=== PATIENT | male | born 1960 | race Caucasian/White ===

== ENCOUNTER 2022-11-08 09:27 | Outpatient (REF) | payer SELFPAY ==
[2022-11-08 10:45] LABS: Creatinine, mg/dL 67.26; Protein mg/dL 211 mg/dL
[2022-11-08 10:48] LABS: Creatinine, 24Hr Urine 0.4 G/Day (1.0-2.0); Protein 24 Hr Urine 1266 mg/Day (<150); Total Volume 24 Hour Urine 600 mL
== END 2022-11-08 09:28 | disposition home or self-care (01) ==
LOC: HO.LNP 09:27
PROVIDERS: Visit Provider Internal Medicine
DX: R53.83 Other fatigue (principal); R80.9 Proteinuria, unspecified
CPT/HCPCS: 84156

== ENCOUNTER 2023-03-20 14:36 | Inpatient (IN) | payer MEDICAID, SELFPAY ==
--- NOTE | ~2023-03-20 | XR_ITS ---
EXAMINATION: XR CHEST CLINICAL INFORMATION: Fluid overload COMPARISON: None available. TECHNIQUE: 2 views of the chest were obtained. FINDINGS: Asymmetric elevation of right diaphragm above the left. Streaky patchy airspace opacity in the right upper lobe with elevation of right minor fissure suggesting some volume loss. Left lung normally aerated. There is a small right sided pleural effusion blunting the posterior costophrenic angle. Central pulmonary vessels are mildly prominent. This is accentuated by the low inspiratory effort. No overt pulmonary edema. Cardiac mediastinal contours are normal. Heart size is normal XR/XR chest 2V IMPRESSION: 1. Streaky patchy airspace opacity in the right upper lobe with elevation of right minor fissure suggesting some volume loss. Small right pleural effusion. 2. Mild central pulmonary vascular congestion accentuated by low inspiratory effort.
--- NOTE | ~2023-03-20 | US_ITS ---
EXAMINATION: US RETROPERITONEAL LIMITED (RENAL ONLY) CLINICAL INFORMATION: Acute kidney injury, retention. COMPARISON: None available. TECHNIQUE: Real-time imaging of the kidneys. FINDINGS: RIGHT KIDNEY: 11 x 4.8 x 6 cm (SAG x AP x TRV). The kidney is normal in size, contour, and echogenicity. Renal cortical thickness is normal. No renal calculi or hydronephrosis. There is a 1.6 x 1.7 x 1.6 cm cyst in the upper pole with a thin internal septation, Bosniak 2 for which no imaging follow-up is recommended. LEFT KIDNEY: 10.6 x 6 x 4 cm (SAG x AP x TRV). The kidney is normal in size, contour, and echogenicity. Renal cortical thickness is normal. No calculi or focal parenchymal lesions. No hydronephrosis. OTHER FINDINGS: Right greater than left pleural effusions. Partial visualization of a decompressed gallbladder filled with stones, evaluation of wall thickening is limited due to underdistention. US/US renal BI IMPRESSION: 1. No hydronephrosis or nephrolithiasis. 2. Right greater than left pleural effusions. 3. A 1.7 cm cyst in the upper pole of the right kidney with a thin internal septation, Bosniak 2 for which no imaging follow-up is recommended. 4. Cholelithiasis within a decompressed gallbladder limiting assessment of wall thickening. If clinically deemed appropriate a repeat ultrasound after appropriate fasting could be obtained for reevaluation of the gallbladder.
[2023-03-20 14:39] VITALS: BP 130/76; PULSE 87; RESP 18; TEMP 36.8; O2SAT 96; BMI 23.9
--- NOTE | 2023-03-20 14:43 | ED_ITS ---
HPI - General Adult General Chief complaint: General Medical <Masood Lantigua - Last Filed: 03/20/23 14:44> Stated complaint: Fluid Retention Stage 3 Kidney Disease <Masood Lantigua - Last Filed: 03/20/23 14:44> Time Seen by Provider: 03/20/23 19:43 <Masood Lantigua - Last Filed: 03/20/23 14:44> Source: patient and family <Francisco Brewer MD - Last Filed: 03/21/23 02:03> Mode of arrival: wheelchair <Francisco Brewer MD - Last Filed: 03/21/23 02:03> Limitations: no limitations <Francisco Brewer MD - Last Filed: 03/21/23 02:03> History of Present Illness HPI narrative: Patient's diabetes hypertension CKD pulmonary hypertension, heart failure with reduced EF ejection fraction 15% PAP of 40 to50 recent streptococcal bacteremia with acute hypoxic respiratory failure admitted at [facility] on 02/24 discharged on 03/06 comes back here as having increased swelling in legs since discharge denies any shortness of breath feels weak is making less amount of urine , during lasat admission patient creatinine was 3.4 improved to 3 at the time of discharge <Francisco Brewer MD - Last Filed: 03/21/23 02:03> Related Data Home medications: Home Medications Medication Instructions Recorded Confirmed albuterol sulfate 90 mcg/actuation 1 - 2 puff inhalation Q4-6H PRN 03/20/23 03/20/23 aerosol inhaler (Ventolin HFA) Shortness Of Breath Or Wheezing aspirin 81 mg tablet,delayed 81 mg PO DAILY 03/20/23 03/20/23 release atorvastatin 40 mg tablet 40 mg PO BEDTIME 03/20/23 03/20/23 brimonidine 0.025 % eye drops 1 drp ophthalmic-Right Q8H PRN IOP 03/20/23 03/20/23 hydralazine 25 mg tablet 25 mg PO TID 03/20/23 03/20/23 isosorbide mononitrate 30 mg 60 mg PO DAILY 03/20/23 03/20/23 tablet,extended release 24 hr latanoprost 0.005 % eye drops 1 drp ophthalmic (eye) BEDTIME 03/20/23 03/20/23 metoprolol succinate 25 mg 50 mg PO DAILY 03/20/23 03/20/23 tablet,extended release 24 hr tamsulosin 0.4 mg capsule 0.4 mg PO BEDTIME 03/20/23 03/20/23 timolol 0.25 % eye drops 1 drp ophthalmic (eye) BID 03/20/23 03/20/23 <Masood Lantigua - Last Filed: 03/20/23 14:44> Allergies/adverse reactions: Allergies Allergy/AdvReac Type Severity Reaction Status Date / Time No Known Allergies Allergy Verified 03/20/23 14:41 <Masood Lantigua - Last Filed: 03/20/23 14:44> Review of Systems Review of Systems: Yes all other systems are reviewed and are negative <Abraham Brewer MD - Last Filed: 03/21/23 02:03> [facility] Past Medical History Medical History: Medical History (Updated 03/21/23 @ 02:02 by Francisco Brewer MD) BPH (benign prostatic hyperplasia) Cardiomyopathy CKD (chronic kidney disease), stage III Diabetes mellitus Hypertension <Masood Lantigua - Last Filed: 03/20/23 14:44> Physical Exam ED Vital Signs: Vital Signs - 24 hr 03/20/23 14:39 03/20/23 19:33 Temperature 98.2 F 98.1 F Pulse Rate 87 89 Respiratory Rate 18 17 Blood Pressure 130/76 171/99 H Pulse Oximetry 96 95 Oxygen Delivery Method Room Air Room Air BMI result Body Mass Index 23.9 <Masood Lantigua - Last Filed: 03/20/23 14:44> Vital Signs - 24 hr 03/20/23 14:39 03/20/23 19:33 Temperature 98.2 F 98.1 F Pulse Rate 87 89 Respiratory Rate 18 17 Blood Pressure 130/76 171/99 H Pulse Oximetry 96 95 Oxygen Delivery Method Room Air Room Air BMI result Body Mass Index 23.9 <Francisco Brewer MD - Last Filed: 03/21/23 02:03> Appearance: Alert. Oriented X3. No acute distress. Eyes: PERRLA, legally blind ENT: Pharynx normal. Oral Mucosa moist pale++ Neck: Normal inspection. Neck supple. CVS: Normal heart rate and rhythm. Pulses normal. Respiratory: No respiratory distress. Equal air entry bilateral, no wheezing/rales/rhonchi Abdomen: Soft and nontender. Bowel sounds are present, no mass palpable, no CVA tenderness Skin: Skin warm and dry. Normal skin color. Normal skin turgor. Extremities: 2+ lower extremity edema. No calf tenderness Neuro: Oriented X 3. No motor deficit. No sensory deficit.No cerebellar signs , cranial nerves II-XII intact <Francisco Brewer MD - Last Filed: 03/21/23 02:03> Course Course Course Narrative: 62-year-old male presents for evaluation of ?fluid retention. ? Patient reports recent admission for similar at [facility]. He states this episode has been gone for about a weel and a half. Denies any fevers, chills, cough shortness of breath <Masood Lantigua - Last Filed: 03/20/23 14:44> Medications Administered Generic Name Dose Route Start Last Admin Trade Name Freq PRN Reason Stop Dose Admin Heparin Sodium (Porcine) 5,000 unit 03/20/23 22:00 03/20/23 22:21 Heparin Sodium,Porcine 5,000 Unit/Ml Vial SUBCUT 5,000 unit Q8H MARC Administration Discontinued Medications Generic Name Dose Route Start Last Admin Trade Name Freq PRN Reason Stop Dose Admin Furosemide 40 mg 03/20/23 20:02 03/20/23 20:25 Furosemide 40 Mg/4 Ml Vial IVPUSH 03/20/23 20:03 40 mg ONCE ONE Administration Protocol <Masood Lantigua - Last Filed: 03/20/23 14:44> Medications Administered Generic Name Dose Route Start Last Admin Trade Name Freq PRN Reason Stop Dose Admin Heparin Sodium (Porcine) 5,000 unit 03/20/23 22:00 03/20/23 22:21 Heparin Sodium,Porcine 5,000 Unit/Ml Vial SUBCUT 5,000 unit Q8H MARC Administration Discontinued Medications Generic Name Dose Route Start Last Admin Trade Name Freq PRN Reason Stop Dose Admin Furosemide 40 mg 03/20/23 20:02 03/20/23 20:25 Furosemide 40 Mg/4 Ml Vial IVPUSH 03/20/23 20:03 40 mg ONCE ONE Administration Protocol <Francisco Brewer MD - Last Filed: 03/21/23 02:03> Medical Decision Making Medical Decision Making [facility] Narrative: Patient with GERSON on CKD with fluid overload not on diuretics admit patient for IV diuresis and further evaluation by department coordinator patient bladder scan showed 900 cc of urine patient refused to have Holliday catheter says that he will urinate himself hospitalist aware <Francisco Brewer MD - Last Filed: 03/21/23 02:03> Lab Data [facility] Lab Attestation statement: I reviewed the patient's lab results. <Francisco Brewer MD - Last Filed: 03/21/23 02:03> Result Diagrams: 03/20/23 16:50 03/20/23 16:50 <Masood Lantigua - Last Filed: 03/20/23 14:44> Labs: Lab Results 03/20/23 03/20/23 03/20/23 Range/Units 16:50 16:50 17:29 WBC 8.6 (4.8-10.8) X10*3/uL RBC 2.84 L (4.60-5.80) X10*6/uL Hgb 8.5 L (14.0-18.0) g/dl Hct 26.3 L (42.0-52.0) % MCV 92.6 (80.0-98.0) fL MCH 29.9 (27.0-33.0) pg MCHC 32.3 (31.0-36.0) g/dl RDW 15.5 (11.0-16.0) % Plt Count 286 (160-400) X10*3/uL MPV 9.8 (9.4-12.4) fL Immature Gran % (Auto) 0.3 (0.0-0.4) % Neut % (Auto) 78.8 H (45-73) % Lymph % (Auto) 6.5 L (20-40) % [place] % (Auto) 12.4 H (2-11) % Eos % (Auto) 1.4 (0-4) % Baso % (Auto) 0.6 (0-2) % Lymph # (Auto) 0.6 L (1.2-4.9) X10*3/uL [place] # (Auto) 1.1 (0.1-1.2) X10*3/uL Eos # (Auto) 0.1 (0.0-0.4) X10*3/uL Baso # (Auto) 0.1 (0.0-0.2) X10*3/uL Abs Immat Gran (auto) 0.03 (0.00-0.03) X10*3/uL Absolute Neuts (auto) 6.8 (2.0-8.3) x10*3/uL Absolute Nucleated RBC 0.000 (0.0-0.012) X10*3/uL Nucleated RBC % (auto) 0.0 (0.0-0.2) /100WBC Sodium 139 (135-145) mmol/L Potassium 5.4 H (3.3-5.1) mmol/L Chloride 109 H (96-108) mmol/L Carbon Dioxide 23 (22-29) mmol/L Anion Gap 12 (12-20) BUN 57 H (9-16) mg/dL Creatinine 3.92 H (0.5-1.4) mg/dL Estim Creat Clear Calc 18.2 Estimated GFR 16 POC Glucose (60-115) mg/dL Random Glucose 198 H (60-115) mg/dL Calcium 8.0 L (8.4-10.2) mg/dL Total Bilirubin 0.5 (0.0-1.0) mg/dL AST 21 (5-37) U/L ALT 29 (0-40) U/L Alkaline Phosphatase 196 H (39-117) U/L B-Natriuretic Peptide 2973 H (<100) pg/mL Total Protein 5.8 L (6.5-8.0) g/dL Albumin 3.0 L (3.5-5.0) g/dL 03/20/23 Range/Units 19:47 WBC (4.8-10.8) X10*3/uL RBC (4.60-5.80) X10*6/uL Hgb (14.0-18.0) g/dl Hct (42.0-52.0) % MCV (80.0-98.0) fL MCH (27.0-33.0) pg MCHC (31.0-36.0) g/dl RDW (11.0-16.0) % Plt Count (160-400) X10*3/uL MPV (9.4-12.4) fL Immature Gran % (Auto) (0.0-0.4) % Neut % (Auto) (45-73) % Lymph % (Auto) (20-40) % [place] % (Auto) (2-11) % Eos % (Auto) (0-4) % Baso % (Auto) (0-2) % Lymph # (Auto) (1.2-4.9) X10*3/uL [place] # (Auto) (0.1-1.2) X10*3/uL Eos # (Auto) (0.0-0.4) X10*3/uL Baso # (Auto) (0.0-0.2) X10*3/uL Abs Immat Gran (auto) (0.00-0.03) X10*3/uL Absolute Neuts (auto) (2.0-8.3) x10*3/uL Absolute Nucleated RBC (0.0-0.012) X10*3/uL Nucleated RBC % (auto) (0.0-0.2) /100WBC Sodium (135-145) mmol/L Potassium (3.3-5.1) mmol/L Chloride (96-108) mmol/L Carbon Dioxide (22-29) mmol/L Anion Gap (12-20) BUN (9-16) mg/dL Creatinine (0.5-1.4) mg/dL Estim Creat Clear Calc Estimated GFR POC Glucose 218 H (60-115) mg/dL Random Glucose (60-115) mg/dL Calcium (8.4-10.2) mg/dL Total Bilirubin (0.0-1.0) mg/dL AST (5-37) U/L ALT (0-40) U/L Alkaline Phosphatase (39-117) U/L B-Natriuretic Peptide (<100) pg/mL Total Protein (6.5-8.0) g/dL Albumin (3.5-5.0) g/dL <Masood Lantigua - Last Filed: 03/20/23 14:44> Lab Results 03/20/23 03/20/23 03/20/23 Range/Units 16:50 16:50 17:29 WBC 8.6 (4.8-10.8) X10*3/uL RBC 2.84 L (4.60-5.80) X10*6/uL Hgb 8.5 L (14.0-18.0) g/dl Hct 26.3 L (42.0-52.0) % MCV 92.6 (80.0-98.0) fL MCH 29.9 (27.0-33.0) pg MCHC 32.3 (31.0-36.0) g/dl RDW 15.5 (11.0-16.0) % Plt Count 286 (160-400) X10*3/uL MPV 9.8 (9.4-12.4) fL Immature Gran % (Auto) 0.3 (0.0-0.4) % Neut % (Auto) 78.8 H (45-73) % Lymph % (Auto) 6.5 L (20-40) % [place] % (Auto) 12.4 H (2-11) % Eos % (Auto) 1.4 (0-4) % Baso % (Auto) 0.6 (0-2) % Lymph # (Auto) 0.6 L (1.2-4.9) X10*3/uL [place] # (Auto) 1.1 (0.1-1.2) X10*3/uL Eos # (Auto) 0.1 (0.0-0.4) X10*3/uL Baso # (Auto) 0.1 (0.0-0.2) X10*3/uL Abs Immat Gran (auto) 0.03 (0.00-0.03) X10*3/uL Absolute Neuts (auto) 6.8 (2.0-8.3) x10*3/uL Absolute Nucleated RBC 0.000 (0.0-0.012) X10*3/uL Nucleated RBC % (auto) 0.0 (0.0-0.2) /100WBC Sodium 139 (135-145) mmol/L Potassium 5.4 H (3.3-5.1) mmol/L Chloride 109 H (96-108) mmol/L Carbon Dioxide 23 (22-29) mmol/L Anion Gap 12 (12-20) BUN 57 H (9-16) mg/dL Creatinine 3.92 H (0.5-1.4) mg/dL Estim Creat Clear Calc 18.2 Estimated GFR 16 POC Glucose (60-115) mg/dL Random Glucose 198 H (60-115) mg/dL Calcium 8.0 L (8.4-10.2) mg/dL Total Bilirubin 0.5 (0.0-1.0) mg/dL AST 21 (5-37) U/L ALT 29 (0-40) U/L Alkaline Phosphatase 196 H (39-117) U/L B-Natriuretic Peptide 2973 H (<100) pg/mL Total Protein 5.8 L (6.5-8.0) g/dL Albumin 3.0 L (3.5-5.0) g/dL 03/20/23 Range/Units 19:47 WBC (4.8-10.8) X10*3/uL RBC (4.60-5.80) X10*6/uL Hgb (14.0-18.0) g/dl Hct (42.0-52.0) % MCV (80.0-98.0) fL MCH (27.0-33.0) pg MCHC (31.0-36.0) g/dl RDW (11.0-16.0) % Plt Count (160-400) X10*3/uL MPV (9.4-12.4) fL Immature Gran % (Auto) (0.0-0.4) % Neut % (Auto) (45-73) % Lymph % (Auto) (20-40) % [place] % (Auto) (2-11) % Eos % (Auto) (0-4) % Baso % (Auto) (0-2) % Lymph # (Auto) (1.2-4.9) X10*3/uL [place] # (Auto) (0.1-1.2) X10*3/uL Eos # (Auto) (0.0-0.4) X10*3/uL Baso # (Auto) (0.0-0.2) X10*3/uL Abs Immat Gran (auto) (0.00-0.03) X10*3/uL Absolute Neuts (auto) (2.0-8.3) x10*3/uL Absolute Nucleated RBC (0.0-0.012) X10*3/uL Nucleated RBC % (auto) (0.0-0.2) /100WBC Sodium (135-145) mmol/L Potassium (3.3-5.1) mmol/L Chloride (96-108) mmol/L Carbon Dioxide (22-29) mmol/L Anion Gap (12-20) BUN (9-16) mg/dL Creatinine (0.5-1.4) mg/dL Estim Creat Clear Calc Estimated GFR POC Glucose 218 H (60-115) mg/dL Random Glucose (60-115) mg/dL Calcium (8.4-10.2) mg/dL Total Bilirubin (0.0-1.0) mg/dL AST (5-37) U/L ALT (0-40) U/L Alkaline Phosphatase (39-117) U/L B-Natriuretic Peptide (<100) pg/mL Total Protein (6.5-8.0) g/dL Albumin (3.5-5.0) g/dL <Francisco Brewer MD - Last Filed: 03/21/23 02:03> Discharge Plan Discharge Clinical Impression: Acute kidney injury superimposed on chronic kidney disease, Fluid overload <Masood Lantigua - Last Filed: 03/20/23 14:44> Patient Disposition: Admitted As Inpatient <Masood Lantigua - Last Filed: 03/20/23 14:44> Interventions: Admission Worksheet (ED) Last Done: 03/20/23 23:03 <Masood Lantigua - Last Filed: 03/20/23 14:44> Discharge Date/Time: 03/20/23 23:03 <Masood Lantigua - Last Filed: 03/20/23 14:44>
[2023-03-20 16:54] LABS: MANUAL DIFF FLAG NO
[2023-03-20 16:56] LABS: Basophils Absolute Auto 0.1 X10*3/uL (0.0-0.2); Basophils Percent Auto 0.6 % (0-2); Eosinophils Absolute Auto 0.1 X10*3/uL (0.0-0.4); Eosinophils Percent Auto 1.4 % (0-4); Hematocrit 26.3 % (42.0-52.0); Hemoglobin 8.5 g/dl (14.0-18.0); Imm Gran Abs Auto 0.03 X10*3/uL (0.00-0.03); Imm Gran Pct Auto 0.3 % (0.0-0.4); Lymphocytes Absolute Auto 0.6 X10*3/uL (1.2-4.9); Lymphocytes Percent Auto 6.5 % (20-40); Mean Corpuscular HGB Conc 32.3 g/dl (31.0-36.0); Mean Corpuscular Hemoglobin 29.9 pg (27.0-33.0); Mean Corpuscular Volume 92.6 fL (80.0-98.0); Mean Platelet Volume 9.8 fL (9.4-12.4); Monocytes Absolute Auto 1.1 X10*3/uL (0.1-1.2); Monocytes Percent Auto 12.4 % (2-11); Neutrophils Absolute Auto 6.8 x10*3/uL (2.0-8.3); Neutrophils Percent Auto 78.8 % (45-73); Platelet Count 286 X10*3/uL (160-400); Red Blood Count 2.84 X10*6/uL (4.60-5.80); Red Cell Distribution Width 15.5 % (11.0-16.0); White Blood Count 8.6 X10*3/uL (4.8-10.8)
[2023-03-20 17:10] LABS: Alanine Aminotransferase 29 U/L (0-40); Alkaline Phosphatase 196 U/L (39-117); Anion Gap 12 (12-20); Aspartate Amino Transferase 21 U/L (5-37); Bilirubin Total 0.5 mg/dL (0.0-1.0); Blood Urea Nitrogen 57 mg/dL (9-16); Carbon Dioxide 23 mmol/L (22-29); Chloride 109 mmol/L (96-108); Creatinine Clr Calc Pharmacy 18.2; Estimated Glomerular Filt Rate 16; Glucose Random 198 mg/dL (60-115); Potassium 5.4 mmol/L (3.3-5.1); Sodium 139 mmol/L (135-145); Total Protein 5.8 g/dL (6.5-8.0)
[2023-03-20 18:43] LABS: B Type Natriuretic Peptide 2973 pg/mL (<100)
[2023-03-20 19:33] VITALS: BP 171/99; PULSE 89; RESP 17; TEMP 36.7; O2SAT 95
[2023-03-20 19:51] LABS: Glucose, Whole Blood 218 mg/dL (60-115)
--- NOTE | 2023-03-20 19:56 | MHC.EDTECH ---
Paitent Vitals are stable Blood sugar was 218 Reported to RN
[2023-03-20] MEDS: Furosemide 40 MG/4 ML VIAL IVPUSH (20:25)
--- NOTE | 2023-03-20 21:49 | PM.IMHP ---
History of Present Illness Date of Service: 03/20/23 Chief Complaint: lowere extremity edema 62M PMH cardiomyopathy (EF15%, grade III diastolic dysfunction) [place] [facility] [place] hospitalization for strep pneumonia with bacteremia, DM, CKD III with proteinuria, HTN, BPH with urinary retention, presented with lower extremity edema. patient has noticed worsening lower extremity edema since discharge after [place] [facility] [place] for hyopglycemia. denies sob or orthopnea. in ED noted to have 1L on bladder scan, refused catheter, labs significant for creatinine 3.92 (was 2.5 at discharge from [facility] [place] given lasix 40mg Review of Systems Review of Systems: Yes all other systems are reviewed and are negative [facility] Medical History (Updated 03/20/23 @ 21:59 by Ian Garcia MD) BPH (benign prostatic hyperplasia) Cardiomyopathy CKD (chronic kidney disease), stage III Diabetes mellitus Hypertension Social History Advance Directives: No Advance Directives Information Provided: No Meds Allergies Allergy/AdvReac Type Severity Reaction Status Date / Time No Known Allergies Allergy Verified 03/20/23 14:41 Active Medications: Current Medications Furosemide (Furosemide 40 Mg/4 Ml Vial) 40 mg IVPUSH BID@0900,1800 [facility]; Protocol Glucose (Glucose Gel 15 Gm Gel..Gram.) 15 gm PO Q15M PRN; Protocol PRN Reason: per Hypoglycemia Standing Ord. Heparin Sodium (Porcine) (Heparin Sodium,Porcine 5,000 Unit/Ml Vial) 5,000 unit SUBCUT Q8H [facility] Dextrose (D10) 250 mls @ 750 mls/hr IV Q15M PRN; Protocol PRN Reason: per Hypoglycemia Standing Ord. Insulin Human Lispro (Insulin Lispro 100 Unit/Ml 3 Ml Vial) 0 unit SUBCUT QIDACHS [facility]; Protocol Pharmacy Consult (Consult Rx Perform Med Rec) 1 each MISCELLANE ONCE PRN PRN Reason: Consult order Sodium Chloride (0.9 % Sodium Chloride Flush 3 Ml Syringe) 3 ml IVFLUSH QSHIFT [facility] Physical Exam Vital Signs and Narrative: Vital Signs: Last Vital Signs Temp 98.1 F 03/20/23 19:33 Pulse 89 03/20/23 19:33 Resp 17 03/20/23 19:33 BP 171/99 H 03/20/23 19:33 Pulse Ox 95 03/20/23 19:33 O2 Del Method Room Air 03/20/23 19:33 BMI result Body Mass Index 23.9 General: AO X 3, no acute distress Resp: CTA bilateral, no accessory muscles used CVS: S1,S2,RRR, 3+ edema GI: soft, non tender, non distended Neuro: motor grossly intact, alert Psych: appropriate affect, appropriate insight Results Labs 03/20/23 16:50 03/20/23 16:50 Labs: Laboratory Results - last 24 hr 03/20/23 03/20/23 03/20/23 16:50 16:50 17:29 MCV 92.6 MCH 29.9 MCHC 32.3 RDW 15.5 Plt Count 286 MPV 9.8 Immature Gran % (Auto) 0.3 Neut % (Auto) 78.8 H Lymph % (Auto) 6.5 L [place] % (Auto) 12.4 H Eos % (Auto) 1.4 Baso % (Auto) 0.6 Lymph # (Auto) 0.6 L [place] # (Auto) 1.1 Eos # (Auto) 0.1 Baso # (Auto) 0.1 Abs Immat Gran (auto) 0.03 Absolute Neuts (auto) 6.8 Absolute Nucleated RBC 0.000 Nucleated RBC % (auto) 0.0 Anion Gap 12 Estim Creat Clear Calc 18.2 Estimated GFR 16 POC Glucose Random Glucose 198 H Calcium 8.0 L Total Bilirubin 0.5 AST 21 ALT 29 Alkaline Phosphatase 196 H B-Natriuretic Peptide 2973 H Total Protein 5.8 L Albumin 3.0 L 03/20/23 19:47 MCV MCH MCHC RDW Plt Count MPV Immature Gran % (Auto) Neut % (Auto) Lymph % (Auto) [place] % (Auto) Eos % (Auto) Baso % (Auto) Lymph # (Auto) [place] # (Auto) Eos # (Auto) Baso # (Auto) Abs Immat Gran (auto) Absolute Neuts (auto) Absolute Nucleated RBC Nucleated RBC % (auto) Anion Gap Estim Creat Clear Calc Estimated GFR POC Glucose 218 H Random Glucose Calcium Total Bilirubin AST ALT Alkaline Phosphatase B-Natriuretic Peptide Total Protein Albumin Imaging Radiologist's Impressions: Impressions Chest X-Ray 03/20/23 15:05 IMPRESSION: 1. Streaky patchy airspace opacity in the right upper lobe with elevation of right minor fissure suggesting some volume loss. Small right pleural effusion. 2. Mild central pulmonary vascular congestion accentuated by low inspiratory effort. Assessment and Plan (1) Cardiomyopathy: Status: Acute Plan 62M PMH cardiomyopathy (EF15%, grade III diastolic dysfunction) [place] [facility] [place] during hospitalization for strep pneumonia with bacteremia, DM, CKD III with proteinuria, HTN, BPH with urinary retention, presented with lower extremity edema. anasarca due to acute on chronic chf with reduced EF and 3rd spacing from proteinuria IV lasix outpatient follow up with cardiology continue toprol GERSON on CKD III with proteinuria ? cardiorenal +/- obstructive refusing urine cath monitor bladder scan, check renal US nephro eval monitor bmp closely with diuresis flomax HTN hydralazine, toprol, imdur DM insulin sliding scale, monitor pocs dvt prophylaxis - hep sq full code patient with significant edema requiring iv diuresis likely to require close monitoring and and several day sof daily labs due to concomitant GERSON on CKDIII, therefore, expected to require atelast 2 midnights inpatient Time Spent With Patient Time: Total time managing care of this patient today ____ minutes. Quality Stroke Does the patient have a stroke diagnosis?: No VTE Prior VTE?: No VTE Risk Level:: Medical - moderate - high VTE Device Contraindication: Treatment Not Indicated VTE Drug Contraindication: N/A - Med Ordered
[2023-03-20] MEDS: Heparin Sodium,Porcine 5,000 UNIT/ML VIAL 5000 UNIT SUBCUT (22:21)
[2023-03-20 22:23] VITALS: BP 151/93; PULSE 87; RESP 17; TEMP 36.8; O2SAT 98
--- NOTE | 2023-03-20 22:35 | PC.NURSE ---
pt medicated according to jan. pt calm and cooperative. awaiting to be brought up to 482
[2023-03-21] VITALS (7 sets, daily range): BP systolic 110–134; BP diastolic 64–81; PULSE 86–91; RESP 16–20; TEMP 36.3–37; O2SAT 94–96
[2023-03-21] MEDS: 0.9 % Sodium Chloride Flush 3 ML SYRINGE IVFLUSH ×4 (03:37→20:56)
[2023-03-21] MEDS: Heparin Sodium,Porcine 5,000 UNIT/ML VIAL 5000 UNIT SUBCUT ×3 (06:03→20:57)
[2023-03-21 06:33] LABS: Hematocrit 24.2 % (42.0-52.0); Hemoglobin 7.8 g/dl (14.0-18.0); Mean Corpuscular HGB Conc 32.2 g/dl (31.0-36.0); Mean Corpuscular Hemoglobin 29.9 pg (27.0-33.0); Mean Corpuscular Volume 92.7 fL (80.0-98.0); Mean Platelet Volume 10.2 fL (9.4-12.4); Platelet Count 278 X10*3/uL (160-400); Red Blood Count 2.61 X10*6/uL (4.60-5.80); Red Cell Distribution Width 15.5 % (11.0-16.0); White Blood Count 7.6 X10*3/uL (4.8-10.8)
[2023-03-21 07:00] LABS: Anion Gap 12 (12-20); Blood Urea Nitrogen 59 mg/dL (9-16); Calcium 7.9 mg/dL (8.4-10.2); Carbon Dioxide 23 mmol/L (22-29); Chloride 110 mmol/L (96-108); Creatinine Clr Calc Pharmacy 19.1; Estimated Glomerular Filt Rate 17; Glucose Fasting 158 mg/dL (60-99); Magnesium 1.5 mg/dL (1.6-2.6); Potassium 5.1 mmol/L (3.3-5.1); Sodium 140 mmol/L (135-145)
[2023-03-21 07:33] LABS: Glucose, Whole Blood 148 mg/dL (60-115)
[2023-03-21] MEDS: Aspirin Enteric Coated 81 MG TABLET.DR PO (08:06)
[2023-03-21] MEDS: Magnesium Sulfate/H2O 2 GM/50 ML PIGGYBACK IV (08:06)
[2023-03-21] MEDS: Isosorbide Mononitrate 60 MG TAB.ER.24H PO (08:07)
[2023-03-21] MEDS: Metoprolol Succinate ER 50 MG TAB.ER.24H PO (08:07)
[2023-03-21] MEDS: Furosemide 40 MG/4 ML VIAL IVPUSH ×2 (08:07→17:30)
[2023-03-21] MEDS: hydrALAZINE HCl 25 MG TABLET PO ×3 (08:07→20:55)
--- NOTE | 2023-03-21 10:51 | MHC.CM.PN ---
Lives w/sister; previously on service w/[facility] for nursing, OT and PT, he is happy w/this in-home care. He has a walker and [facility] is in process of getting him a shower chair. He was just D/C'd from [facility] one week ago following an extended hospital stay for PNA per his statement. At time of D/C his sister will be transporting him home. D/C plan is home w/resumption of in-home services provided by [facility] for nursing, OT and PT. CM to follow.
--- NOTE | 2023-03-21 10:58 | P.PNIM_ITS ---
Subjective Subjective Date of Service: 03/21/23 Interval History: seen and examined this morning follow up for lower extremity edema no sob, chest pain refusing murillo cath or straight cath. no abdominal pain Review of Systems Review of Systems: Yes all other systems are reviewed and are negative Constitutional Constitutional: Denies chills and Denies fever(s) Cardiovascular Cardiovascular: Denies chest pain, Denies palpitations and Denies dyspnea Respiratory Respiratory: Denies cough and Denies dyspnea Gastrointestinal Gastrointestinal: Denies abdominal pain, Denies nausea and Denies vomiting Endocrine Endocrine: Denies palpitations Physical Exam Vital Signs: Vital Signs: Last Vital Signs Temp 97.8 F 03/21/23 10:53 Pulse 86 03/21/23 10:53 Resp 16 03/21/23 10:53 BP 110/64 03/21/23 10:53 Pulse Ox 94 03/21/23 10:53 O2 Del Method Room Air 03/21/23 10:53 BMI result Body Mass Index 23.9 Const: General: alert and awake Nutritional Appearance: average body habitus Orientation/consciousness: patient oriented x3 Resp: Effort & Inspection: normal respiratory effort and able to speak in complete sentences Auscultation: clear to auscultation bilaterally Cardio: Rate: regular rate GI: Inspection: No distended Palpation (GI): Soft to palpation and nontender Neuro: General: patient oriented x3 and CN's II-XI intact bilaterally Extrem: Other: 3+ edema b/l LE Objective Data Active Medications Aspirin (Aspirin Enteric Coated 81 Mg Tablet.) 81 mg PO DAILY [facility] Last Admin: 03/21/23 08:06 Dose: 81 mg Documented By: ROBE Atorvastatin Calcium (Atorvastatin Calcium 40 Mg Tablet) 40 mg PO BEDTIME [facility] Furosemide (Furosemide 40 Mg/4 Ml Vial) 40 mg IVPUSH BID@0900,1800 [facility]; Protocol Last Admin: 03/21/23 08:07 Dose: 40 mg Documented By: ROBE Glucose (Glucose Gel 15 Gm Gel..Gram.) 15 gm PO Q15M PRN; Protocol PRN Reason: per Hypoglycemia Standing Ord. Heparin Sodium (Porcine) (Heparin Sodium,Porcine 5,000 Unit/Ml Vial) 5,000 unit SUBCUT Q8H [facility] Last Admin: 03/21/23 06:03 Dose: 5,000 unit Documented By: HO.ANTOIC Hydralazine HCl (Hydralazine Hcl 25 Mg Tablet) 25 mg PO TID [facility]; Protocol Last Admin: 03/21/23 08:07 Dose: 25 mg Documented By: ROBE Dextrose (D10) 250 mls @ 750 mls/hr IV Q15M PRN; Protocol PRN Reason: per Hypoglycemia Standing Ord. Insulin Human Lispro (Insulin Lispro 100 Unit/Ml 3 Ml Vial) 0 unit SUBCUT QIDACHS [facility]; Protocol Last Admin: 03/21/23 07:38 Dose: Not Given Documented By: ROBE Non-Admin Reason: No Insulin Coverage Isosorbide Mononitrate (Isosorbide Mononitrate 60 Mg Tab.Er.24h) 60 mg PO DAILY [facility]; Protocol Last Admin: 03/21/23 08:07 Dose: 60 mg Documented By: ROBE Latanoprost (Latanoprost 0.005 % Ophth Jaymie 2.5 Ml Drops) 1 drop EYE-BOTH BEDTIME [facility] Metoprolol Succinate (Metoprolol Succinate Er 50 Mg Tab.Er.24h) 50 mg PO DAILY [facility]; Protocol Last Admin: 03/21/23 08:07 Dose: 50 mg Documented By: ROBE Non-Formulary Medication ( Brimonidine 0.025% 1 Drop) 1 drop EYE-RIGHT Q8H PRN PRN Reason: IOP Non-Formulary Medication (Timolol 0.25% 1 Drop) 1 drop EYE-BOTH BID [facility] Pharmacy Consult (Consult Rx Perform Med Rec) 1 each MISCELLANE ONCE PRN PRN Reason: Consult order Sodium Chloride (0.9 % Sodium Chloride Flush 3 Ml Syringe) 3 ml IVFLUSH QSHIFT [facility] Last Admin: 03/21/23 08:06 Dose: 3 ml Documented By: ROBE Tamsulosin HCl (Tamsulosin Hcl 0.4 Mg Capsule) 0.4 mg PO BEDTIME [facility] Labs 03/21/23 06:02 03/21/23 06:02 Labs: Laboratory Results - last 24 hr 03/20/23 03/20/23 03/20/23 16:50 16:50 17:29 MCV 92.6 MCH 29.9 MCHC 32.3 RDW 15.5 Plt Count 286 MPV 9.8 Immature Gran % (Auto) 0.3 Neut % (Auto) 78.8 H Lymph % (Auto) 6.5 L Glascock % (Auto) 12.4 H Eos % (Auto) 1.4 Baso % (Auto) 0.6 Lymph # (Auto) 0.6 L Glascock # (Auto) 1.1 Eos # (Auto) 0.1 Baso # (Auto) 0.1 Abs Immat Gran (auto) 0.03 Absolute Neuts (auto) 6.8 Absolute Nucleated RBC 0.000 Nucleated RBC % (auto) 0.0 Anion Gap 12 Estim Creat Clear Calc 18.2 Estimated GFR 16 POC Glucose Random Glucose 198 H Fasting Glucose Calcium 8.0 L Magnesium Total Bilirubin 0.5 AST 21 ALT 29 Alkaline Phosphatase 196 H B-Natriuretic Peptide 2973 H Total Protein 5.8 L Albumin 3.0 L 03/20/23 03/21/23 03/21/23 19:47 06:02 06:02 MCV 92.7 MCH 29.9 MCHC 32.2 RDW 15.5 Plt Count 278 MPV 10.2 Immature Gran % (Auto) Neut % (Auto) Lymph % (Auto) Glascock % (Auto) Eos % (Auto) Baso % (Auto) Lymph # (Auto) Glascock # (Auto) Eos # (Auto) Baso # (Auto) Abs Immat Gran (auto) Absolute Neuts (auto) Absolute Nucleated RBC 0.000 Nucleated RBC % (auto) 0.0 Anion Gap 12 Estim Creat Clear Calc 19.1 Estimated GFR 17 POC Glucose 218 H Random Glucose Fasting Glucose 158 H Calcium 7.9 L Magnesium 1.5 L Total Bilirubin AST ALT Alkaline Phosphatase B-Natriuretic Peptide Total Protein Albumin 03/21/23 07:13 MCV MCH MCHC RDW Plt Count MPV Immature Gran % (Auto) Neut % (Auto) Lymph % (Auto) Glascock % (Auto) Eos % (Auto) Baso % (Auto) Lymph # (Auto) Glascock # (Auto) Eos # (Auto) Baso # (Auto) Abs Immat Gran (auto) Absolute Neuts (auto) Absolute Nucleated RBC Nucleated RBC % (auto) Anion Gap Estim Creat Clear Calc Estimated GFR POC Glucose 148 H Random Glucose Fasting Glucose Calcium Magnesium Total Bilirubin AST ALT Alkaline Phosphatase B-Natriuretic Peptide Total Protein Albumin Assessment and Plan (1) Acute kidney injury superimposed on chronic kidney disease: Status: Acute (2) Cardiomyopathy: Status: Acute (3) Fluid overload: Status: Acute Plan 62M PMH cardiomyopathy (EF15%, grade III diastolic dysfunction) recently diagnosed at [facility] january 2023 during hospitalization for strep pneumonia with bacteremia, DM, CKD III with proteinuria, HTN, BPH with urinary retention, presented with lower extremity edema. anasarca due to acute on chronic chf with reduced EF and 3rd spacing from proteinuria continue IV lasix continue toprol nephrology eval GERSON on CKD III with proteinuria SCr 2.5 on last d/c from [facility] earlier this month ? cardiorenal. no obstruction on renal US nephro eval pending monitor bmp closely with diuresis hypo magnesemia Replace and follow urinary retention refusing murillo/straight cath; monitor bladder scan, retaining 1L this am, refused straight cath, eventually urinated 600+ flomax Cardiomyopathy EF 15%, grade III diastolic dysfunction declined cardiac catheterization at [facility] lasix as above outpatient follow up with cardiology Chronic normocytic anemia likely anemia of chronic dz in setting of CKD no evidence of blood loss consider blood transfusion, will discuss with patient Follow H&H HTN hydralazine, toprol, imdur DM insulin sliding scale, monitor pocs dvt prophylaxis - hep sq full code attending - dr. rojas requires oingoing inpatient stay patient for significant edema requiring iv di uresis likely to require close monitoring and and several day, daily labs due to concomitant GERSON on CKDIII Time Spent With Patient Time: Total time managing care of this patient today ____ minutes. Quality Stroke Does the patient have a stroke diagnosis?: No VTE Prior VTE?: No VTE Risk Level:: Medical - moderate - high VTE Device Contraindication: Treatment Not Indicated VTE Drug Contraindication: N/A - Med Ordered
[2023-03-21 11:09] LABS: Glucose, Whole Blood 207 mg/dL (60-115)
--- NOTE | 2023-03-21 11:48 | PC.NURSE ---
caption writer was asked by provider to talk w pt regarding possible blood transfusion in light of low H&H. Discussed pros and cons, how the actual transfusion works, function of kidney in blood cell production among other topics. pt stated he would like to wait and see what tomorrow (03/22) bloodwork shows. If it is low or lower, it seems he will be amenable to the transfusion.
[2023-03-21] MEDS: Insulin Lispro 100 UNIT/ML 3 ML VIAL SUBCUT ×2 (12:01→20:56)
--- NOTE | 2023-03-21 14:30 | PM.CNNEP ---
History of Present Illness Reason for Consult Consult date: 03/21/23 Chief Complaint Chief complaint: Chf,Gerson History of Present Illness Narrative: 62M with cardiomyopathy (EF15%, grade III diastolic dysfunction) recently diagnosed at [facility] jan[place] 2023 during hospitalization for strep pneumonia with bacteremia, DM, CKD III with proteinuria, HTN, BPH with urinary retention, presented with lower extremity edema. He noticed worsening lower extremity edema since discharge after second hospitalization to [facility] in february 2023 for hyopglycemia. denies sob or orthopnea. in ED noted to have 1L on bladder scan, refused catheter, labs significant for creatinine 3.92 (was 2.5 at discharge from [facility]). Nephrology was consulted to assist in her clinical care during her current hospital stay Review of Systems Review of Systems Yes all other systems are reviewed and are negative [facility] Past Medical History Medical History (Updated 03/21/23 @ 02:02 by Francisco Brewer MD) BPH (benign prostatic hyperplasia) Cardiomyopathy CKD (chronic kidney disease), stage III Diabetes mellitus Hypertension Social History Social History Household Members: Family Housing: House Do you presently have visiting nurse or other home services: Yes Patient Tobacco Use Status: Never used Tobacco service: No Current occupational status: unemployed Meds Allergies Allergy/AdvReac Type Severity Reaction Status Date / Time No Known Allergies Allergy Verified 03/20/23 14:41 Active Medications: Current Medications Aspirin (Aspirin Enteric Coated 81 Mg Tablet.) 81 mg PO DAILY [facility] Last Admin: 03/21/23 08:06 Dose: 81 mg Atorvastatin Calcium (Atorvastatin Calcium 40 Mg Tablet) 40 mg PO BEDTIME [facility] Furosemide (Furosemide 40 Mg/4 Ml Vial) 40 mg IVPUSH BID@0900,1800 [facility]; Protocol Last Admin: 03/21/23 08:07 Dose: 40 mg Glucose (Glucose Gel 15 Gm Gel..Gram.) 15 gm PO Q15M PRN; Protocol PRN Reason: per Hypoglycemia Standing Ord. Heparin Sodium (Porcine) (Heparin Sodium,Porcine 5,000 Unit/Ml Vial) 5,000 unit SUBCUT Q8H [facility] Last Admin: 03/21/23 14:23 Dose: 5,000 unit Hydralazine HCl (Hydralazine Hcl 25 Mg Tablet) 25 mg PO TID [facility]; Protocol Last Admin: 03/21/23 14:23 Dose: 25 mg Dextrose (D10) 250 mls @ 750 mls/hr IV Q15M PRN; Protocol PRN Reason: per Hypoglycemia Standing Ord. Insulin Human Lispro (Insulin Lispro 100 Unit/Ml 3 Ml Vial) 0 unit SUBCUT QIDACHS [facility]; Protocol Last Admin: 03/21/23 12:01 Dose: 4 unit Isosorbide Mononitrate (Isosorbide Mononitrate 60 Mg Tab.Er.24h) 60 mg PO DAILY [facility]; Protocol Last Admin: 03/21/23 08:07 Dose: 60 mg Latanoprost (Latanoprost 0.005 % Ophth Jaymie 2.5 Ml Drops) 1 drop EYE-BOTH BEDTIME [facility] Metoprolol Succinate (Metoprolol Succinate Er 50 Mg Tab.Er.24h) 50 mg PO DAILY [facility]; Protocol Last Admin: 03/21/23 08:07 Dose: 50 mg Non-Formulary Medication ( Brimonidine 0.025% 1 Drop) 1 drop EYE-RIGHT Q8H PRN PRN Reason: IOP Non-Formulary Medication (Timolol 0.25% 1 Drop) 1 drop EYE-BOTH BID [facility] Pharmacy Consult (Consult Rx Perform Med Rec) 1 each MISCELLANE ONCE PRN PRN Reason: Consult order Sodium Chloride (0.9 % Sodium Chloride Flush 3 Ml Syringe) 3 ml IVFLUSH QSHIFT [facility] Last Admin: 03/21/23 08:06 Dose: 3 ml Tamsulosin HCl (Tamsulosin Hcl 0.4 Mg Capsule) 0.4 mg PO BEDTIME [facility] Home Medications Medication Instructions Recorded Confirmed Last Taken Type albuterol sulfate 90 mcg/actuation 1 - 2 puff inhalation Q4-6H PRN 03/20/23 03/20/23 Unknown History aerosol inhaler (Ventolin HFA) Shortness Of Breath Or Wheezing aspirin 81 mg tablet,delayed 81 mg PO DAILY 03/20/23 03/20/23 Unknown History release atorvastatin 40 mg tablet 40 mg PO BEDTIME 03/20/23 03/20/23 Unknown History brimonidine 0.025 % eye drops 1 drp ophthalmic-Right Q8H PRN IOP 03/20/23 03/20/23 Unknown History hydralazine 25 mg tablet 25 mg PO TID 03/20/23 03/20/23 Unknown History isosorbide mononitrate 30 mg 60 mg PO DAILY 03/20/23 03/20/23 Unknown History tablet,extended release 24 hr latanoprost 0.005 % eye drops 1 drp ophthalmic (eye) BEDTIME 03/20/23 03/20/23 Unknown History metoprolol succinate 25 mg 50 mg PO DAILY 03/20/23 03/20/23 Unknown History tablet,extended release 24 hr tamsulosin 0.4 mg capsule 0.4 mg PO BEDTIME 03/20/23 03/20/23 Unknown History timolol 0.25 % eye drops 1 drp ophthalmic (eye) BID 03/20/23 03/20/23 Unknown History Physical Exam Vital Signs: Last Vital Signs Temp 97.8 F 03/21/23 10:53 Pulse 86 03/21/23 10:53 Resp 16 03/21/23 10:53 BP 110/64 03/21/23 10:53 Pulse Ox 94 03/21/23 10:53 O2 Del Method Room Air 03/21/23 10:53 BMI result Body Mass Index 23.9 Const General: no acute distress Orientation/consciousness: patient oriented x3 Eyes EOM: EOMs intact bilaterally Resp Auscultation: diminished lung sounds Cardio Rate: regular rate GI Palpation (GI): Soft to palpation Neuro General: patient oriented x3 Results Lab Results 03/21/23 06:02 03/21/23 06:02 Lab results: Chemistry 03/20/23 03/21/23 16:50 06:02 Sodium 139 140 Potassium 5.4 H 5.1 Carbon Dioxide 23 23 BUN 57 H 59 H Creatinine 3.92 H 3.74 H Calcium 8.0 L 7.9 L Hematology 03/20/23 03/21/23 16:50 06:02 WBC 8.6 7.6 Hgb 8.5 L 7.8 L Plt Count 286 278 Assessment and Plan (1) Acute kidney injury superimposed on chronic kidney disease: Status: Acute Plan Has 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 Currently on lasix IV bid No ACEI/ARB/Entresto for now; Likely have to switch to lasix drip tomorrow Needs to switch Metoprolol to Carvedilol; Labs AM Time Spent With Patient Time: Total time managing care of this patient today ____ minutes. Procedures Date of Service Date of Service: 03/21/23
[2023-03-21 16:09] LABS: Glucose, Whole Blood 134 mg/dL (60-115)
[2023-03-21 20:32] LABS: Glucose, Whole Blood 195 mg/dL (60-115)
[2023-03-21] MEDS: Tamsulosin HCL 0.4 MG CAPSULE PO (20:55)
[2023-03-21] MEDS: Atorvastatin Calcium 40 MG TABLET PO (20:55)
[2023-03-21] MEDS: Latanoprost 0.005 % Ophth Sol 2.5 ML DROPS 1 DROP EYE-BOTH (21:05)
[2023-03-22] VITALS (7 sets, daily range): BP systolic 114–147; BP diastolic 63–83; PULSE 83–89; RESP 16–18; TEMP 36.1–37.4; O2SAT 93–98
[2023-03-22] MEDS: Heparin Sodium,Porcine 5,000 UNIT/ML VIAL 5000 UNIT SUBCUT ×3 (05:55→21:20)
[2023-03-22 06:25] LABS: Hematocrit 23.2 % (42.0-52.0); Hemoglobin 7.3 g/dl (14.0-18.0); Mean Corpuscular HGB Conc 31.5 g/dl (31.0-36.0); Mean Corpuscular Hemoglobin 29.1 pg (27.0-33.0); Mean Corpuscular Volume 92.4 fL (80.0-98.0); Mean Platelet Volume 10.2 fL (9.4-12.4); Platelet Count 289 X10*3/uL (160-400); Red Blood Count 2.51 X10*6/uL (4.60-5.80); Red Cell Distribution Width 15.4 % (11.0-16.0); White Blood Count 6.4 X10*3/uL (4.8-10.8)
[2023-03-22 06:48] LABS: Anion Gap 13 (12-20); Blood Urea Nitrogen 59 mg/dL (9-16); Calcium 7.9 mg/dL (8.4-10.2); Carbon Dioxide 24 mmol/L (22-29); Chloride 109 mmol/L (96-108); Creatinine Clr Calc Pharmacy 18.3; Estimated Glomerular Filt Rate 16; Glucose Random 128 mg/dL (60-115); Potassium 4.8 mmol/L (3.3-5.1); Sodium 141 mmol/L (135-145)
[2023-03-22 07:13] LABS: Glucose, Whole Blood 136 mg/dL (60-115)
[2023-03-22] MEDS: hydrALAZINE HCl 25 MG TABLET PO ×3 (08:06→20:45)
[2023-03-22] MEDS: Aspirin Enteric Coated 81 MG TABLET.DR PO (08:06)
[2023-03-22] MEDS: carvediloL 6.25 MG TABLET PO ×2 (08:06→20:45)
[2023-03-22] MEDS: Isosorbide Mononitrate 60 MG TAB.ER.24H PO (08:06)
[2023-03-22] MEDS: 0.9 % Sodium Chloride Flush 3 ML SYRINGE IVFLUSH ×2 (08:06→15:42)
[2023-03-22 08:14] LABS: Magnesium 1.7 mg/dL (1.6-2.6)
[2023-03-22] MEDS: Furosemide 40 MG/4 ML VIAL IVPUSH ×2 (08:56→17:02)
--- NOTE | 2023-03-22 11:00 | HO.PM.IMPN ---
Subjective Subjective Date of Service: 03/22/23 Interval History: seen and examined this morning follow up for leg edema, renal failure continues to have urinary retention, intermittently urinating, but not fully emptying bladder. continues to decline murillo/straight cath no sob Review of Systems Review of Systems: Yes all other systems are reviewed and are negative Constitutional Constitutional: Denies chills and Denies fever(s) ENT Ears, Nose, Mouth, and Throat: Denies dizziness Cardiovascular Cardiovascular: Denies chest pain, Denies palpitations and Denies dyspnea Respiratory Respiratory: Denies cough and Denies dyspnea Gastrointestinal Gastrointestinal: Denies abdominal pain, Denies nausea and Denies vomiting Neurologic Neurologic: Denies dizziness Endocrine Endocrine: Denies palpitations Physical Exam Vital Signs: Vital Signs: Last Vital Signs Temp 98.8 F 03/22/23 07:11 Pulse 89 03/22/23 07:11 Resp 16 03/22/23 07:11 BP 123/71 03/22/23 07:11 Pulse Ox 93 03/22/23 07:11 O2 Del Method Room Air 03/22/23 07:11 BMI result Body Mass Index 23.9 Const: General: alert and awake Nutritional Appearance: average body habitus Orientation/consciousness: patient oriented x3 Resp: Effort & Inspection: normal respiratory effort and able to speak in complete sentences Auscultation: clear to auscultation bilaterally Cardio: Rate: regular rate GI: Inspection: No distended Palpation (GI): Soft to palpation and nontender Neuro: General: patient oriented x3 and CN's II-XI intact bilaterally Extrem: Other: 2-3+ edema b/l LE Objective Data Active Medications Aspirin (Aspirin Enteric Coated 81 Mg Tablet.) 81 mg PO DAILY [facility] Last Admin: 03/22/23 08:06 Dose: 81 mg Documented By: ANDIE Atorvastatin Calcium (Atorvastatin Calcium 40 Mg Tablet) 40 mg PO BEDTIME [facility] Last Admin: 03/21/23 20:55 Dose: 40 mg Documented By: YOU Carvedilol (Carvedilol 6.25 Mg Tablet) 6.25 mg PO BID [facility]; Protocol Last Admin: 03/22/23 08:06 Dose: 6.25 mg Documented By: ANDIE Furosemide (Furosemide 40 Mg/4 Ml Vial) 40 mg IVPUSH BID@0900,1800 [facility]; Protocol Last Admin: 03/22/23 08:56 Dose: 40 mg Documented By: ANDIE Glucose (Glucose Gel 15 Gm Gel..Gram.) 15 gm PO Q15M PRN; Protocol PRN Reason: per Hypoglycemia Standing Ord. Heparin Sodium (Porcine) (Heparin Sodium,Porcine 5,000 Unit/Ml Vial) 5,000 unit SUBCUT Q8H [facility] Last Admin: 03/22/23 05:55 Dose: 5,000 unit Documented By: YOU Hydralazine HCl (Hydralazine Hcl 25 Mg Tablet) 25 mg PO TID [facility]; Protocol Last Admin: 03/22/23 08:06 Dose: 25 mg Documented By: ANDIE Dextrose (D10) 250 mls @ 750 mls/hr IV Q15M PRN; Protocol PRN Reason: per Hypoglycemia Standing Ord. Insulin Human Lispro (Insulin Lispro 100 Unit/Ml 3 Ml Vial) 0 unit SUBCUT QIDACHS [facility]; Protocol Last Admin: 03/22/23 07:28 Dose: Not Given Documented By: ANDIE Non-Admin Reason: No Insulin Coverage Isosorbide Mononitrate (Isosorbide Mononitrate 60 Mg Tab.Er.24h) 60 mg PO DAILY [facility]; Protocol Last Admin: 03/22/23 08:06 Dose: 60 mg Documented By: ANDIE Latanoprost (Latanoprost 0.005 % Ophth Jaymie 2.5 Ml Drops) 1 drop EYE-BOTH BEDTIME [facility] Last Admin: 03/21/23 21:05 Dose: 1 drop Documented By: YOU Non-Formulary Medication ( Brimonidine 0.025% 1 Drop) 1 drop EYE-RIGHT Q8H PRN PRN Reason: IOP Non-Formulary Medication (Timolol 0.25% 1 Drop) 1 drop EYE-BOTH BID [facility] Pharmacy Consult (Consult Rx Perform Med Rec) 1 each MISCELLANE ONCE PRN PRN Reason: Consult order Sodium Chloride (0.9 % Sodium Chloride Flush 3 Ml Syringe) 3 ml IVFLUSH QSHIFT [facility] Last Admin: 03/22/23 08:06 Dose: 3 ml Documented By: ANDIE Tamsulosin HCl (Tamsulosin Hcl 0.4 Mg Capsule) 0.4 mg PO BEDTIME [facility] Last Admin: 03/21/23 20:55 Dose: 0.4 mg Documented By: YOU Labs 03/22/23 05:49 03/22/23 05:49 Labs: Laboratory Results - last 24 hr 03/21/23 03/21/23 03/21/23 10:52 15:47 20:09 MCV MCH MCHC RDW Plt Count MPV Absolute Nucleated RBC Nucleated RBC % (auto) Anion Gap Estim Creat Clear Calc Estimated GFR POC Glucose 207 H 134 H 195 H Random Glucose Calcium Magnesium Blood Type Antibody Screen Crossmatch 03/22/23 03/22/23 03/22/23 05:49 05:49 07:05 MCV 92.4 MCH 29.1 MCHC 31.5 RDW 15.4 Plt Count 289 MPV 10.2 Absolute Nucleated RBC 0.000 Nucleated RBC % (auto) 0.0 Anion Gap 13 Estim Creat Clear Calc 18.3 Estimated GFR 16 POC Glucose 136 H Random Glucose 128 H Calcium 7.9 L Magnesium 1.7 Blood Type Antibody Screen Crossmatch 03/22/23 09:05 MCV MCH MCHC RDW Plt Count MPV Absolute Nucleated RBC Nucleated RBC % (auto) Anion Gap Estim Creat Clear Calc Estimated GFR POC Glucose Random Glucose Calcium Magnesium Blood Type A Negative Antibody Screen NEGATIVE Crossmatch See Detail Assessment and Plan (1) Acute kidney injury superimposed on chronic kidney disease: Status: Acute (2) BPH (benign prostatic hyperplasia): Status: Acute (3) Fluid overload: Status: Acute Plan 62M PMH cardiomyopathy (EF15%, grade III diastolic dysfunction) recently diagnosed at [facility] january 2023 during hospitalization for strep pneumonia with bacteremia, DM, CKD III with proteinuria, HTN, BPH with urinary retention, presented with lower extremity edema. anasarca due to acute on chronic chf with reduced EF and 3rd spacing from proteinuria continue IV lasix difficult to obtain accurate Is&Os due to urinary retention, documented negative 1.2L nephrology eval GERSON on CKD4 SCr 2.5 on last d/c from [facility] earlier this month. SCr 3.91 today ? cardiorenal. no obstruction on renal US but urinary retention contributing factor nephro following monitor bmp closely with diuresis hypo magnesemia Replace and follow urinary retention continues to decline murillo/straight cath flomax Cardiomyopathy EF 15%, grade III diastolic dysfunction declined cardiac catheterization at [facility] lasix as above toprol xl changed to coreg per neprho rec outpatient follow up with cardiology Chronic normocytic anemia likely anemia of chronic dz in setting of CKD no evidence of blood loss decline transfusion yesterday, but amenable today, will transfuse 1u RBC Follow H&H HTN hydralazine, imdur, coreg DM insulin sliding scale, monitor pocs dvt prophylaxis - hep sq full code attending - dr. matthews requires oingoing inpatient stay patient for significant edema requiring iv diuresis likely to require close monitoring and and several day, daily labs due to concomitant GERSON on CKDIII Time Spent With Patient Time: Total time managing care of this patient today ____ minutes. Quality Stroke Does the patient have a stroke diagnosis?: No VTE Prior VTE?: No VTE Risk Level:: Medical - moderate - high VTE Device Contraindication: Treatment Not Indicated VTE Drug Contraindication: N/A - Med Ordered
[2023-03-22 11:04] LABS: Glucose, Whole Blood 236 mg/dL (60-115)
[2023-03-22] MEDS: Acetaminophen 325 MG TABLET 650 MG PO (11:04)
[2023-03-22] MEDS: diphenhydrAMINE HCl 12.5 MG/5 ML LIQUID PO (11:05)
--- NOTE | 2023-03-22 11:31 | PC.NURSE ---
Pt given Iv lasix 40mg at 0900. 1100 bladder scanned for 850. Pt refuses st cath. Janna Issa made aware.
[2023-03-22] MEDS: Insulin Lispro 100 UNIT/ML 3 ML VIAL SUBCUT ×2 (12:12→17:02)
--- NOTE | 2023-03-22 15:45 | PM.PNNEP ---
Subjective Subjective Date of Service: 03/22/23 Interval history: continues to have urinary retention, intermittently urinating, but not fully emptying bladder. continues to decline murillo/straight cath ; All recent data reviewed Physical Exam Vital Signs: Vital Signs: Last Vital Signs Temp 98.7 F 03/22/23 15:23 Pulse 86 03/22/23 15:23 Resp 18 03/22/23 15:23 BP 121/67 03/22/23 15:23 Pulse Ox 98 03/22/23 15:23 O2 Del Method Room Air 03/22/23 15:23 BMI result Body Mass Index 23.9 Const: General: no acute distress Orientation/consciousness: patient oriented x3 Eyes: EOM: EOMs intact bilaterally Resp: Auscultation: diminished lung sounds Cardio: Rate: regular rate GI: Palpation (GI): Soft to palpation Neuro: General: patient oriented x3 Extrem: General: Yes edema Objective Data Labs 03/22/23 05:49 03/22/23 05:49 Labs: Laboratory Results - last 24 hr 03/21/23 03/21/23 03/22/23 15:47 20:09 05:49 WBC 6.4 RBC 2.51 L Hgb 7.3 L Hct 23.2 L MCV 92.4 MCH 29.1 MCHC 31.5 RDW 15.4 Plt Count 289 MPV 10.2 Absolute Nucleated RBC 0.000 Nucleated RBC % (auto) 0.0 Sodium Potassium Chloride Carbon Dioxide Anion Gap BUN Creatinine Estim Creat Clear Calc Estimated GFR POC Glucose 134 H 195 H Random Glucose Calcium Magnesium Blood Type Antibody Screen Crossmatch 03/22/23 03/22/23 03/22/23 05:49 07:05 09:05 WBC RBC Hgb Hct MCV MCH MCHC RDW Plt Count MPV Absolute Nucleated RBC Nucleated RBC % (auto) Sodium 141 Potassium 4.8 Chloride 109 H Carbon Dioxide 24 Anion Gap 13 BUN 59 H Creatinine 3.91 H Estim Creat Clear Calc 18.3 Estimated GFR 16 POC Glucose 136 H Random Glucose 128 H Calcium 7.9 L Magnesium 1.7 Blood Type A Negative Antibody Screen NEGATIVE Crossmatch See Detail 03/22/23 10:54 WBC RBC Hgb Hct MCV MCH MCHC RDW Plt Count MPV Absolute Nucleated RBC Nucleated RBC % (auto) Sodium Potassium Chloride Carbon Dioxide Anion Gap BUN Creatinine Estim Creat Clear Calc Estimated GFR POC Glucose 236 H Random Glucose Calcium Magnesium Blood Type Antibody Screen Crossmatch Procedures Date of Service Date of Service: 03/22/23 Assessment & Plan Assessment and plan (1) Acute kidney injury superimposed on chronic kidney disease: Status: Acute Assessment and Plan: Has 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 Currently on lasix IV bid No ACEI/ARB/Entresto for now; Likely have to switch to lasix drip tomorrow Switched to Carvedilol; Labs AM Progress Note: Quality Stroke Does the patient have a stroke diagnosis?: No
[2023-03-22 15:51] LABS: Glucose, Whole Blood 158 mg/dL (60-115)
[2023-03-22] MEDS: Latanoprost 0.005 % Ophth Sol 2.5 ML DROPS 1 DROP EYE-BOTH (20:45)
[2023-03-22] MEDS: Atorvastatin Calcium 40 MG TABLET PO (20:46)
[2023-03-22] MEDS: Tamsulosin HCL 0.4 MG CAPSULE PO (20:46)
[2023-03-22 20:53] LABS: Glucose, Whole Blood 136 mg/dL (60-115)
[2023-03-23] VITALS (7 sets, daily range): BP systolic 116–140; BP diastolic 63–78; PULSE 68–95; RESP 14–20; TEMP 36.1–37; O2SAT 94–98
[2023-03-23] MEDS: 0.9 % Sodium Chloride Flush 3 ML SYRINGE IVFLUSH ×4 (00:08→20:08)
[2023-03-23] MEDS: Heparin Sodium,Porcine 5,000 UNIT/ML VIAL 5000 UNIT SUBCUT ×3 (06:04→21:06)
[2023-03-23 07:57] LABS: Glucose, Whole Blood 159 mg/dL (60-115)
[2023-03-23] MEDS: Insulin Lispro 100 UNIT/ML 3 ML VIAL SUBCUT ×4 (08:02→21:06)
[2023-03-23] MEDS: carvediloL 6.25 MG TABLET PO ×2 (08:03→20:08)
[2023-03-23] MEDS: Aspirin Enteric Coated 81 MG TABLET.DR PO (08:03)
[2023-03-23] MEDS: Isosorbide Mononitrate 60 MG TAB.ER.24H PO (08:03)
[2023-03-23] MEDS: hydrALAZINE HCl 25 MG TABLET PO ×3 (08:03→20:07)
[2023-03-23] MEDS: Furosemide 40 MG/4 ML VIAL IVPUSH ×2 (08:03→17:00)
--- NOTE | 2023-03-23 11:08 | P.PNIM_ITS ---
Subjective Subjective Date of Service: 03/23/23 Interval History: seen and examined this morning follow up for leg edema, renal failure continues to have urinary retention, intermittently urinating, but not fully emptying bladder. continues to decline murillo/straight cath no sob Review of Systems Review of Systems: Yes all other systems are reviewed and are negative Constitutional Constitutional: Denies chills and Denies fever(s) ENT Ears, Nose, Mouth, and Throat: Denies dizziness Cardiovascular Cardiovascular: Denies chest pain, Denies palpitations and Denies dyspnea Respiratory Respiratory: Denies cough and Denies dyspnea Gastrointestinal Gastrointestinal: Denies abdominal pain, Denies nausea and Denies vomiting Neurologic Neurologic: Denies dizziness Endocrine Endocrine: Denies palpitations Physical Exam Vital Signs: Vital Signs: Last Vital Signs Temp 97.1 F 03/23/23 07:29 Pulse 90 03/23/23 07:29 Resp 20 03/23/23 07:29 BP 128/76 03/23/23 07:29 Pulse Ox 96 03/23/23 07:29 O2 Del Method Room Air 03/23/23 07:29 BMI result Body Mass Index 23.9 Appearing in no acute distress lung sounds are clear to auscultation heart regular rate rhythm, clear S1, S2 positive bowel sounds, abdomen is soft, nontender neuro patient is alert x3, no focal deficits Objective Data Active Medications Aspirin (Aspirin Enteric Coated 81 Mg Tablet.) 81 mg PO DAILY [facility] Last Admin: 03/23/23 08:03 Dose: 81 mg Documented By: TAINA Atorvastatin Calcium (Atorvastatin Calcium 40 Mg Tablet) 40 mg PO BEDTIME [facility] Last Admin: 03/22/23 20:46 Dose: 40 mg Documented By: AUREA Carvedilol (Carvedilol 6.25 Mg Tablet) 6.25 mg PO BID [facility]; Protocol Last Admin: 03/23/23 08:03 Dose: 6.25 mg Documented By: TAINA Furosemide (Furosemide 40 Mg/4 Ml Vial) 40 mg IVPUSH BID@0900,1800 [facility]; Protocol Last Admin: 03/23/23 08:03 Dose: 40 mg Documented By: TAINA Glucose (Glucose Gel 15 Gm Gel..Gram.) 15 gm PO Q15M PRN; Protocol PRN Reason: per Hypoglycemia Standing Ord. Heparin Sodium (Porcine) (Heparin Sodium,Porcine 5,000 Unit/Ml Vial) 5,000 unit SUBCUT Q8H [facility] Last Admin: 03/23/23 06:04 Dose: 5,000 unit Documented By: CHUCKY Hydralazine HCl (Hydralazine Hcl 25 Mg Tablet) 25 mg PO TID [facility]; Protocol Last Admin: 03/23/23 08:03 Dose: 25 mg Documented By: TAINA Dextrose (D10) 250 mls @ 750 mls/hr IV Q15M PRN; Protocol PRN Reason: per Hypoglycemia Standing Ord. Insulin Human Lispro (Insulin Lispro 100 Unit/Ml 3 Ml Vial) 0 unit SUBCUT QIDACHS [facility]; Protocol Last Admin: 03/23/23 08:02 Dose: 2 unit Documented By: TAINA Isosorbide Mononitrate (Isosorbide Mononitrate 60 Mg Tab.Er.24h) 60 mg PO DAILY [facility]; Protocol Last Admin: 03/23/23 08:03 Dose: 60 mg Documented By: TAINA Latanoprost (Latanoprost 0.005 % Ophth Jaymie 2.5 Ml Drops) 1 drop EYE-BOTH BEDTIME [facility] Last Admin: 03/22/23 20:45 Dose: 1 drop Documented By: AUREA Non-Formulary Medication ( Brimonidine 0.025% 1 Drop) 1 drop EYE-RIGHT Q8H PRN PRN Reason: IOP Non-Formulary Medication (Timolol 0.25% 1 Drop) 1 drop EYE-BOTH BID [facility] Pharmacy Consult (Consult Rx Perform Med Rec) 1 each MISCELLANE ONCE PRN PRN Reason: Consult order Sodium Chloride (0.9 % Sodium Chloride Flush 3 Ml Syringe) 3 ml IVFLUSH QSHIFT [facility] Last Admin: 03/23/23 08:09 Dose: 3 ml Documented By: TAINA Tamsulosin HCl (Tamsulosin Hcl 0.4 Mg Capsule) 0.4 mg PO BEDTIME [facility] Last Admin: 03/22/23 20:46 Dose: 0.4 mg Documented By: AUREA Labs 03/22/23 05:49 03/22/23 05:49 Labs: Laboratory Results - last 24 hr 03/22/23 03/22/23 03/22/23 09:05 15:20 20:48 POC Glucose 158 H 136 H Blood Type A Negative Antibody Screen NEGATIVE Crossmatch See Detail 03/23/23 07:32 POC Glucose 159 H Blood Type Antibody Screen Crossmatch Assessment and Plan (1) Acute kidney injury superimposed on chronic kidney disease: Status: Acute (2) BPH (benign prostatic hyperplasia): Status: Acute (3) Fluid overload: Status: Acute Plan 62M PMH cardiomyopathy (EF15%, grade III diastolic dysfunction) [place] [facility] during hospitalization for strep pneumonia with bact eremia, DM, CKD III with proteinuria, HTN, BPH with urinary retention, presented with lower extremity edema. Anasarca due to acute on chronic chf with reduced EF and 3rd spacing from proteinuria continue IV lasix difficult to obtain accurate Is&Os due to urinary retention, documented negative 3.2L nephrology following GERSON on CKD4 SCr 2.5 on [place] [facility] [place]. cardiorenal no obstruction on renal US but urinary retention contributing factor, patient declining catheter nephro following monitor bmp closely with diuresis Hypomagnesemia Replace and follow urinary retention continues to decline murillo/straight cath as needed flomax Cardiomyopathy EF 15%, grade III diastolic dysfunction declined cardiac catheter[place] [facility] [place]ix as above toprol xl changed to coreg per neprho rec outpatient follow up with cardiology Chronic normocytic anemia likely anemia of chronic dz in setting of CKD no evidence of blood loss decline transfusion yesterday, but amenable today, will transfuse 1u RBC Follow H&H HTN hydralazine, imdur, coreg DM insulin sliding scale, monitor pocs dvt prophylaxis - hep sq full code attending - dr. Knapp requires ongoing inpatient stay patient for significant edema requiring iv diuresis likely to require close monitoring and and several day, daily labs due to concomitant GERSON on CKDIII Time Spent With Patient Time: Total time managing care of this patient today ____ minutes. Quality Stroke Does the patient have a stroke diagnosis?: No VTE Prior VTE?: No VTE Risk Level:: Medical - moderate - high VTE Device Contraindication: Treatment Not Indicated VTE Drug Contraindication: N/A - Med Ordered
--- NOTE | 2023-03-23 11:27 | PM.PNNEP ---
Subjective Subjective Date of Service: 03/23/23 Interval history: seen and examined this morning; continues to not fully emptying bladder but decline murillo/straight cath Physical Exam Vital Signs: Vital Signs: Last Vital Signs Temp 97.8 F 03/23/23 11:13 Pulse 90 03/23/23 11:13 Resp 20 03/23/23 11:13 BP 126/65 03/23/23 11:13 Pulse Ox 96 03/23/23 11:13 O2 Del Method Room Air 03/23/23 11:13 BMI result Body Mass Index 23.9 Const: General: comfortable Orientation/consciousness: patient oriented x3 Eyes: EOM: EOMs intact bilaterally Neck: Neck: Yes supple Resp: Auscultation: diminished lung sounds Cardio: Rate: regular rate GI: Palpation (GI): Soft to palpation Neuro: General: patient oriented x3 and moves all extremities Extrem: General: Yes edema Objective Data Labs 03/22/23 05:49 03/22/23 05:49 Labs: Laboratory Results - last 24 hr 03/22/23 03/22/23 03/22/23 09:05 15:20 20:48 POC Glucose 158 H 136 H Blood Type A Negative Antibody Screen NEGATIVE Crossmatch See Detail 03/23/23 07:32 POC Glucose 159 H Blood Type Antibody Screen Crossmatch Procedures Date of Service Date of Service: 03/23/23 Assessment & Plan Assessment and plan (1) Acute kidney injury superimposed on chronic kidney disease: Status: Acute Assessment and Plan: Has CKD 4 at baseline due to Diabetic hypertensive renal disease Has cardiomyopathy; GERSON due to CRS; Also has obstructive uropathy Volume overloaded. Currently on lasix IV bid No ACEI/ARB/Entresto for now; Likely have to switch to lasix drip Switched to Carvedilol; On hydralazine/Imdur; Labs AM Progress Note: Quality Stroke Does the patient have a stroke diagnosis?: No
[2023-03-23 11:54] LABS: Glucose, Whole Blood 206 mg/dL (60-115)
--- NOTE | 2023-03-23 14:30 | MHC.CM.PN ---
EMR REVIEWED, PT W/CARDIOMYPATHY AND GERSON ON CKD4, PT REMAINS ON IV LASIX, NO PLAN FOR D/C AT THIS TIME, GOAL FOR D/C IS HOME W/[facility]UMP OF [facility] W/[facility] FOR TRANSPORT. CM WILL CONT TO FOLLOW D/C NEEDS.
[2023-03-23 15:49] LABS: Glucose, Whole Blood 179 mg/dL (60-115)
[2023-03-23] MEDS: Atorvastatin Calcium 40 MG TABLET PO (20:08)
[2023-03-23] MEDS: Latanoprost 0.005 % Ophth Sol 2.5 ML DROPS 1 DROP EYE-BOTH (20:08)
[2023-03-23] MEDS: Tamsulosin HCL 0.4 MG CAPSULE PO (20:08)
--- NOTE | 2023-03-23 20:21 | PC.NURSE ---
Bladder scan ordered q shift, first check show over 900ml, patient refused characterization, provider notified, will continue to monitor.
--- NOTE | 2023-03-23 20:22 | PC.NURSE ---
Patient voided 900ml at 1245, patient educated on the importance of monitoring bladder volume. Provider notified.
[2023-03-23] MEDS: Dorzolamide/Timolo 2.23%/0.68% 10 ML DRBTL 1 DROP EYE-BOTH (21:05)
[2023-03-23 21:17] LABS: Glucose, Whole Blood 198 mg/dL (60-115)
[2023-03-24] VITALS (8 sets, daily range): BP systolic 116–133; BP diastolic 63–79; PULSE 82–97; RESP 15–20; TEMP 36.2–36.9; O2SAT 94–97
[2023-03-24] MEDS: Heparin Sodium,Porcine 5,000 UNIT/ML VIAL 5000 UNIT SUBCUT ×3 (05:44→21:56)
[2023-03-24 07:57] LABS: Glucose, Whole Blood 188 mg/dL (60-115)
[2023-03-24] MEDS: Isosorbide Mononitrate 60 MG TAB.ER.24H PO (08:13)
[2023-03-24] MEDS: Aspirin Enteric Coated 81 MG TABLET.DR PO (08:13)
[2023-03-24] MEDS: hydrALAZINE HCl 25 MG TABLET PO ×3 (08:13→21:55)
[2023-03-24] MEDS: Furosemide 40 MG/4 ML VIAL IVPUSH (08:13)
[2023-03-24] MEDS: carvediloL 6.25 MG TABLET PO ×2 (08:13→21:56)
[2023-03-24] MEDS: Insulin Lispro 100 UNIT/ML 3 ML VIAL SUBCUT ×3 (08:13→21:56)
[2023-03-24] MEDS: 0.9 % Sodium Chloride Flush 3 ML SYRINGE IVFLUSH ×2 (08:14→22:03)
--- NOTE | 2023-03-24 08:43 | MHC.CM.PN ---
EMR REVIEWED, PER HOSPITALIST PT WILL CONT DIURESING W/PLAN FOR CARDIO AND ECCHO TODAY, NO PLAN FOR D/C, CM WILL CONT TO FOLLOW D/C NEEDS.
--- NOTE | 2023-03-24 11:28 | PM.PNNEP ---
Subjective Subjective Date of Service: 03/24/23 Interval history: All recent data reviewed; continues to not fully emptying bladder but decline murillo/straight cath Physical Exam Vital Signs: Vital Signs: Last Vital Signs Temp 98.3 F 03/24/23 11:05 Pulse 90 03/24/23 11:05 Resp 16 03/24/23 11:05 BP 116/64 03/24/23 11:05 Pulse Ox 95 03/24/23 11:05 O2 Del Method Room Air 03/24/23 11:05 BMI result Body Mass Index 23.9 Const: General: no acute distress Orientation/consciousness: patient oriented x3 Eyes: EOM: EOMs intact bilaterally Neck: Neck: Yes supple Resp: Auscultation: diminished lung sounds Cardio: Rate: regular rate GI: Palpation (GI): Soft to palpation Skin: General skin exam: no rashes or lesions noted Neuro: General: patient oriented x3 and moves all extremities Extrem: General: Yes edema Objective Data Labs 03/22/23 05:49 03/22/23 05:49 Labs: Laboratory Results - last 24 hr 03/23/23 03/23/23 03/23/23 11:15 15:46 20:48 POC Glucose 206 H 179 H 198 H 03/24/23 07:22 POC Glucose 188 H Procedures Date of Service Date of Service: 03/24/23 Assessment & Plan Assessment and plan (1) Acute kidney injury superimposed on chronic kidney disease: Status: Acute Assessment and Plan: Has CKD 4 at baseline due to Diabetic hypertensive renal disease Has cardiomyopathy; GERSON due to CRS; Also has obstructive uropathy Volume overloaded. Currently on lasix IV bid-switch to lasix drip 10 mg/hr No ACEI/ARB/Entresto for now; Switched to Carvedilol; On hydralazine/Imdur Labs AM pending Progress Note: Quality Stroke Does the patient have a stroke diagnosis?: No
[2023-03-24 11:32] LABS: Glucose, Whole Blood 214 mg/dL (60-115)
--- NOTE | 2023-03-24 12:46 | PM.CNCAR ---
History of Present Illness History of Present Illness Date of Service: 03/24/23 Requesting physician: Sejal Platt Chief complaint: Chf,[place] Narrative: [age] year gentleman with chronic kidney disease and cardiomyopathy diagnosed in [facility] based on echocardiography performed in January 2023 showing ejection fraction severely reduced at 15%. There was also [id number] mitral valve regurgitation. There was also a large left-sided pleural effusion at that time. He is now presenting to [facility] with lower extremity edema. He is denying any chest discomfort, shortness of breath, orthopnea or PND. He is saying he has been taking medications regularly. He has chronic kidney disease. He follows with Nephrology. [facility] Past Medical History Medical History (Updated 03/21/23 @ 02:02 by Francisco Brewer MD) BPH (benign prostatic hyperplasia) Cardiomyopathy CKD (chronic kidney disease), stage III Diabetes mellitus Hypertension Social History Social History Household Members: Family Housing: House Do you presently have visiting nurse or other home services: Yes Patient Tobacco Use Status: Never used Tobacco service: No Current occupational status: unemployed Meds Allergies Allergy/AdvReac Type Severity Reaction Status Date / Time No Known Allergies Allergy Verified 03/20/23 14:41 Active Medications: Current Medications Aspirin (Aspirin Enteric Coated 81 Mg Tablet.Dr) 81 mg PO DAILY [facility] Last Admin: 03/24/23 08:13 Dose: 81 mg Atorvastatin Calcium (Atorvastatin Calcium 40 Mg Tablet) 40 mg PO BEDTIME [facility] Last Admin: 03/23/23 20:08 Dose: 40 mg Carvedilol (Carvedilol 6.25 Mg Tablet) 6.25 mg PO BID [facility]; Protocol Last Admin: 03/24/23 08:13 Dose: 6.25 mg Dorzolamide/Timolol (Dorzolamide/Timolo 2.23%/0.68% 10 Ml Drbtl) 1 drop EYE-BOTH BID [facility] Last Admin: 03/23/23 21:05 Dose: 1 drop Furosemide (Furosemide 40 Mg/4 Ml Vial) 40 mg IVPUSH BID@0900,1800 [facility]; Protocol Last Admin: 03/24/23 08:13 Dose: 40 mg Glucose (Glucose Gel 15 Gm Gel..Gram.) 15 gm PO Q15M PRN; Protocol PRN Reason: per Hypoglycemia Standing Ord. Heparin Sodium (Porcine) (Heparin Sodium,Porcine 5,000 Unit/Ml Vial) 5,000 unit SUBCUT Q8H [facility] Last Admin: 03/24/23 05:44 Dose: 5,000 unit Hydralazine HCl (Hydralazine Hcl 25 Mg Tablet) 25 mg PO TID [facility]; Protocol Last Admin: 03/24/23 08:13 Dose: 25 mg Dextrose (D10) 250 mls @ 750 mls/hr IV Q15M PRN; Protocol PRN Reason: per Hypoglycemia Standing Ord. Insulin Human Lispro (Insulin Lispro 100 Unit/Ml 3 Ml Vial) 0 unit SUBCUT QIDACHS [facility]; Protocol Last Admin: 03/24/23 08:13 Dose: 2 unit Isosorbide Mononitrate (Isosorbide Mononitrate 60 Mg Tab.Er.24h) 60 mg PO DAILY [facility]; Protocol Last Admin: 03/24/23 08:13 Dose: 60 mg Latanoprost (Latanoprost 0.005 % Ophth Jaymie 2.5 Ml Drops) 1 drop EYE-BOTH BEDTIME [facility] Last Admin: 03/23/23 20:08 Dose: 1 drop Non-Formulary Medication ( Brimonidine 0.025% 1 Drop) 1 drop EYE-RIGHT Q8H PRN PRN Reason: IOP Pharmacy Consult (Consult Rx Perform Med Rec) 1 each MISCELLANE ONCE PRN PRN Reason: Consult order Sodium Chloride (0.9 % Sodium Chloride Flush 3 Ml Syringe) 3 ml IVFLUSH QSHIFT [facility] Last Admin: 03/24/23 08:14 Dose: 3 ml Tamsulosin HCl (Tamsulosin Hcl 0.4 Mg Capsule) 0.4 mg PO BEDTIME [facility] Last Admin: 03/23/23 20:08 Dose: 0.4 mg Home Medications Medication Instructions Recorded Confirmed Last Taken Type albuterol sulfate 90 mcg/actuation 1 - 2 puff inhalation Q4-6H PRN 03/20/23 03/20/23 Unknown History aerosol inhaler (Ventolin HFA) Shortness Of Breath Or Wheezing aspirin 81 mg tablet,delayed 81 mg PO DAILY 03/20/23 03/20/23 Unknown History release atorvastatin 40 mg tablet 40 mg PO BEDTIME 03/20/23 03/20/23 Unknown History brimonidine 0.025 % eye drops 1 drp ophthalmic-Right Q8H PRN IOP 03/20/23 03/20/23 Unknown History hydralazine 25 mg tablet 25 mg PO TID 03/20/23 03/20/23 Unknown History isosorbide mononitrate 30 mg 60 mg PO DAILY 03/20/23 03/20/23 Unknown History tablet,extended release 24 hr latanoprost 0.005 % eye drops 1 drp ophthalmic (eye) BEDTIME 03/20/23 03/20/23 Unknown History metoprolol succinate 25 mg 50 mg PO DAILY 03/20/23 03/20/23 Unknown History tablet,extended release 24 hr dorzolamide 22.3 mg-timolol 6.8 1 drp ophthalmic (eye) BID 03/23/23 03/23/23 Unknown History mg/mL eye drops tamsulosin 0.4 mg capsule 0.4 mg PO BEDTIME 03/23/23 03/23/23 Unknown History Physical Exam Vital Signs: Vital Signs: Last Vital Signs Temp 98.3 F 03/24/23 11:05 Pulse 90 03/24/23 11:05 Resp 16 03/24/23 11:05 BP 116/64 03/24/23 11:05 Pulse Ox 95 03/24/23 11:05 O2 Del Method Room Air 03/24/23 11:05 BMI result Body Mass Index 23.9 GENERAL APPEARANCE: in no acute distress, pleasant. NECK: no carotid bruit, mild jugular venous distention. SKIN: no suspicious lesions, warm and dry. HEART: no murmurs, regular rate and rhythm. LUNGS: clear to auscultation bilaterally. ABDOMEN: soft, nontender. EXTREMITIES: ++ edema. PERIPHERAL PULSES: equal. NEUROLOGIC: No gross deficits, AAO X 3 Objective Labs and Meds 03/22/23 05:49 03/22/23 05:49 Lab results: Laboratory Results - last 24 hr 03/23/23 03/23/23 03/24/23 15:46 20:48 07:22 POC Glucose 179 H 198 H 188 H 03/24/23 11:08 POC Glucose 214 H Assessment and Plan (1) Acute kidney injury superimposed on chronic kidney disease: Status: Acute (2) Fluid overload: Status: Acute (3) Cardiomyopathy: Status: Acute Plan Pleasant 62 year gentleman who is here for follow-up. He has kidney disease and cardiomyopathy. His ejection fraction was 15% in January 2023 at [facility]. Repeat echocardiography testing leads showing ejection fraction of 50-55%. He has wall motion abnormalities in the inferior, inferoseptal and anteroseptal pérez. Right ventricle is also mildly dilated and has mild dysfunction. Clinically appears to be overloaded. Continue IV diuretics at this point. Will give 1 dose of metolazone. Can continue rest of medications as before. He will follow up as outpatient in the clinic and we will pursue ischemic evaluation. Thank you for allowing me to participate in the care of your patient. Please feel free to contact me if you have any questions. Time Spent With Patient Time: Total time managing care of this patient today ____ minutes. Procedures Date of Service Date of Service: 03/24/23
--- NOTE | 2023-03-24 13:54 | CA_ITS ---
Transthoracic Echocardiogram Patient (Last, First, Middle): Cheo Pugh, Gender: Male Date of : 1960 Age: 62 Procedure Date: 03/24/2023 Procedure Type: Transthoracic Echocardiogram Location: [facility] [place] Height: 170.18 cm Weight: 69.4 kg BSA: 1.80 m2 Heart Rate: bpm BP: 131 / 71 mmHg Automation Architect: TO Referring MD: Sejal Platt NP Symptoms: chf Study Quality: Adequate Conclusions: - Normal left ventricular cavity size. There is normal left ventricular wall thickness. The left ventricular systolic function is low normal. The visually estimated ejection fraction is between 50-55%. - The apical inferior and mid inferoseptal segments are hypokinetic. - The basal inferior, mid inferior, basal inferoseptal, and basal anteroseptal segments are akinetic. - Mildly increased right ventricular cavity size. There is mildly decreased right ventricular systolic function. - There is mild tricuspid valve regurgitation. The right ventricular systolic pressure is 44 mmHg. Normal right atrial pressure. - There is a trivial pericardial effusion. Findings Left Ventricle Normal left ventricular cavity size. There is normal left ventricular wall thickness. The left ventricular systolic function is low normal. The visually estimated ejection fraction is between 50-55%. There is evidence of regional wall motion abnormalities. Abnormal diastolic function is noted. Spectral Doppler is indicative of a pseudonormal filling pattern. E/E prime ratio is between 8 and 15 consistent with indeterminate filling pressures. Reduced global longitudinal strain at -11%. Wall Motion Rest Echo Findings The apical inferior and mid inferoseptal segments are hypokinetic. The basal inferior, mid inferior, basal inferoseptal, and basal anteroseptal segments are akinetic. Right Ventricle Mildly increased right ventricular cavity size. There is mildly decreased right ventricular systolic function. Atria The left atrium is mildly dilated. The right atrium is mildly dilated. Aortic Valve There is a normal trileaflet aortic valve. There is mild calcification of the aortic valve. There is no aortic valve stenosis. There is trace (trivial) aortic valve regurgitation. Mitral Valve The mitral valve appears normal. There is mild to moderate mitral valve regurgitation. There is no mitral valve stenosis. Pulmonic Valve Normal pulmonic valve structure and function. There is trace pulmonic valve regurgitation. Tricuspid Valve Normal tricuspid valve structure and function. There is mild tricuspid valve regurgitation. The right ventricular systolic pressure is 44 mmHg. Normal right atrial pressure. Mild pulmonary hypertension is present. Great Vessels All visible segments of the aorta are normal in size. The visualized portions of the pulmonary artery and branches are normal. Venous The inferior vena cava is normal in size and collapses greater than 50% with inspiration. Pericardium/Pleural There is a trivial pericardial effusion. Prior Study Comparison No prior study available for comparison. No prior study in our system. At [facility] he had echocardiography in January 2023 showing severely reduced ejection fraction of 15%. Measurements 2D Linear Measurements IVSd: 1.01 0.6-0.9/0.6-1.0 cm LVIDd: 4.53 3.9-5.3/4.2-5.9 cm LVIDd Index: 2.52 2.4-3.2/2.2-3.1 cm/m2 LVIDs: 3.62 2.0-3.6 cm LVPWd: 0.93 0.7-1.1 cm LA Diam: 3.60 2.7-3.8/3.0-4.0 cm LAIDs Index: 2.00 1.5-2.3 cm/m2 LV Mass: 184.73 67-162/88-224 g LV Mass Index: 102.63 43-95/49-115 g/m2 LVOT Diam: 2.00 3.0+(-)1.3 cm 2D Systolic Function EF 4C: 50.40 >55% EF 2C: 45.20 >55% EF BiP: 48.00 >55% Mitral Valve MV Pk E: 1.08 MV PK A: 0.54 MV Decel Time: 165.00 E/A: 2.00 E'Lateral: 11.30 E'Medial: 8.38 E/E' Med: 12.90 E/E' Lat: 9.60 PHT: 48.00 MVA PHT: 4.58 Decel [place]: 6.53 Aortic Valve AoV Pk Tez: 1.79 AoV Mn Tez: 1.40 AoV VTI: 0.34 AoV Pk Grad: 13.00 Aov Mn Grad: 8.00 ENOCH Cont.VTI: 1.95 LVOT LVOT Pk Tez: 1.06 LVOT Mn Tez: 0.70 LVOT VTI: 0.21 LVOT Pk Grad: 4.00 LVOT Mn Grad: 2.00 LVOT Diam: 2.00 LVOT Area: 3.14 Diastolic Function MV Pk E: 1.08 MV Pk A: 0.54 E/A: 2.00 E'Medial: 8.38 E/E' Med: 12.90 E' Laterial: 11.30 E/E' Lat: 9.60 Right Ventricle TAPSE (mm): 16.50 TVS' Tez: 9.90 Tricuspid Valve TR Pk Tez: 3.02 TR Pk Grad: 36.00 RA Press: 8.00 RVSP: 44.00 Great Vessels Aorta Sinus of Valsalva: 3.15 2.0-3.[address] [place]: 2.17 1.7-3.4 cm Ao Asc: 3.30 2.1-3.4 cm Updated in Other Vendor System with Status of Final Avelino Chong MD electronically signed on 03/25/2023 2:43:53 PM with status of Final
--- NOTE | 2023-03-24 14:04 | HO.PM.IMPN ---
Subjective Subjective Date of Service: 03/24/23 Interval History: seen and examined this morning follow up for leg edema, renal failure continues to have urinary retention, intermittently urinating, but not fully emptying bladder. continues to decline murillo/straight cath no sob Review of Systems Review of Systems: Yes all other systems are reviewed and are negative Constitutional Constitutional: Denies chills and Denies fever(s) ENT Ears, Nose, Mouth, and Throat: Denies dizziness Cardiovascular Cardiovascular: Denies chest pain, Denies palpitations and Denies dyspnea Respiratory Respiratory: Denies cough and Denies dyspnea Gastrointestinal Gastrointestinal: Denies abdominal pain, Denies nausea and Denies vomiting Neurologic Neurologic: Denies dizziness Endocrine Endocrine: Denies palpitations Physical Exam Vital Signs: Vital Signs: Last Vital Signs Temp 98.3 F 03/24/23 11:05 Pulse 90 03/24/23 11:05 Resp 16 03/24/23 11:05 BP 116/64 03/24/23 11:05 Pulse Ox 95 03/24/23 11:05 O2 Del Method Room Air 03/24/23 11:05 BMI result Body Mass Index 23.9 Appearing in no acute distress lung sounds are clear to auscultation heart regular rate rhythm, clear S1, S2 positive bowel sounds, abdomen is soft, nontender neuro patient is alert x3, no focal deficits Objective Data Active Medications Aspirin (Aspirin Enteric Coated 81 Mg Tablet.) 81 mg PO DAILY [facility] Last Admin: 03/24/23 08:13 Dose: 81 mg Documented By: TAINA Atorvastatin Calcium (Atorvastatin Calcium 40 Mg Tablet) 40 mg PO BEDTIME [facility] Last Admin: 03/23/23 20:08 Dose: 40 mg Documented By: GRADY Carvedilol (Carvedilol 6.25 Mg Tablet) 6.25 mg PO BID [facility]; Protocol Last Admin: 03/24/23 08:13 Dose: 6.25 mg Documented By: TAINA Dorzolamide/Timolol (Dorzolamide/Timolo 2.23%/0.68% 10 Ml Drbtl) 1 drop EYE-BOTH BID [facility] Last Admin: 03/24/23 12:47 Dose: Not Given Documented By: TAINA Non-Admin Reason: Previously Administered Furosemide (Furosemide 40 Mg/4 Ml Vial) 40 mg IVPUSH BID@0900,1800 [facility]; Protocol Last Admin: 03/24/23 08:13 Dose: 40 mg Documented By: TAINA Glucose (Glucose Gel 15 Gm Gel..Gram.) 15 gm PO Q15M PRN; Protocol PRN Reason: per Hypoglycemia Standing Ord. Heparin Sodium (Porcine) (Heparin Sodium,Porcine 5,000 Unit/Ml Vial) 5,000 unit SUBCUT Q8H [facility] Last Admin: 03/24/23 05:44 Dose: 5,000 unit Documented By: GRADY Hydralazine HCl (Hydralazine Hcl 25 Mg Tablet) 25 mg PO TID [facility]; Protocol Last Admin: 03/24/23 08:13 Dose: 25 mg Documented By: TAINA Dextrose (D10) 250 mls @ 750 mls/hr IV Q15M PRN; Protocol PRN Reason: per Hypoglycemia Standing Ord. Insulin Human Lispro (Insulin Lispro 100 Unit/Ml 3 Ml Vial) 0 unit SUBCUT QIDACHS [facility]; Protocol Last Admin: 03/24/23 12:48 Dose: 4 unit Documented By: TAINA Isosorbide Mononitrate (Isosorbide Mononitrate 60 Mg Tab.Er.24h) 60 mg PO DAILY [facility]; Protocol Last Admin: 03/24/23 08:13 Dose: 60 mg Documented By: TAINA Latanoprost (Latanoprost 0.005 % Ophth Jaymie 2.5 Ml Drops) 1 drop EYE-BOTH BEDTIME [facility] Last Admin: 03/23/23 20:08 Dose: 1 drop Documented By: GRADY Non-Formulary Medication ( Brimonidine 0.025% 1 Drop) 1 drop EYE-RIGHT Q8H PRN PRN Reason: IOP Pharmacy Consult (Consult Rx Perform Med Rec) 1 each MISCELLANE ONCE PRN PRN Reason: Consult order Sodium Chloride (0.9 % Sodium Chloride Flush 3 Ml Syringe) 3 ml IVFLUSH QSHIFT [facility] Last Admin: 03/24/23 08:14 Dose: 3 ml Documented By: TAINA Tamsulosin HCl (Tamsulosin Hcl 0.4 Mg Capsule) 0.4 mg PO BEDTIME [facility] Last Admin: 03/23/23 20:08 Dose: 0.4 mg Documented By: GRADY Labs 03/22/23 05:49 03/22/23 05:49 Labs: Laboratory Results - last 24 hr 03/23/23 03/23/23 03/24/23 15:46 20:48 07:22 POC Glucose 179 H 198 H 188 H 03/24/23 11:08 POC Glucose 214 H Assessment and Plan (1) Acute kidney injury superimposed on chronic kidney disease: Status: Acute (2) BPH (benign prostatic hyperplasia): Status: Acute (3) Fluid overload: Status: Acute Plan 62M PMH cardiomyopathy (EF15%, grade III diastolic dysfunction) recently diagnosed at [facility] [place] [place] january 2023 during hospitalization for strep pneumonia with bacteremia, DM, CKD III with proteinuria, HTN, BPH with urinary retention, presented with lower extremity edema. Anasarca due to acute on chronic chf with reduced EF and 3rd spacing from proteinuria transitioned to IV cont lasix 10mg/hr still needs diuresis difficult to obtain accurate Is&Os due to urinary retention, documented negative 4.4L nephrology following declining labs GERSON on CKD4 SCr 2.5 on last d/c from [facility] [place] [place] earlier this month. cardiorenal no obstruction on renal US but urinary retention contributing factor, patient declining catheter nephro following monitor bmp closely with diuresis Hypomagnesemia Replace and follow urinary retention continues to decline murillo/straight cath as needed flomax Cardiomyopathy EF 15%, grade III diastolic dysfunction declined cardiac catheterization at [facility] [place] [place] lasix as above toprol xl changed to coreg per neprho rec Chronic normocytic anemia likely anemia of chronic dz in setting of CKD no evidence of blood loss s/p transfused 1u RBC Follow H&H HTN hydralazine, imdur, coreg DM insulin sliding scale, monitor pocs dvt prophylaxis - hep sq full code attending - dr. Knapp requires ongoing inpatient stay patient for significant edema requiring iv diuresis likely to require close monitoring and and several day, daily labs due to concomitant GERSON on CKDIII Time Spent With Patient Time: Total time managing care of this patient today ____ minutes. Quality Stroke Does the patient have a stroke diagnosis?: No VTE Prior VTE?: No VTE Risk Level:: Medical - moderate - high VTE Device Contraindication: Treatment Not Indicated VTE Drug Contraindication: N/A - Med Ordered
[2023-03-24] MEDS: metOLazone 5 MG TABLET PO (15:35)
[2023-03-24] MEDS: Furosemide 200 MG in 0.9 % Sodium Chloride 80 ML IVCONT (15:36)
[2023-03-24 16:35] LABS: Glucose, Whole Blood 128 mg/dL (60-115)
[2023-03-24 20:54] LABS: Glucose, Whole Blood 166 mg/dL (60-115)
[2023-03-24] MEDS: Tamsulosin HCL 0.4 MG CAPSULE PO (21:56)
[2023-03-24] MEDS: Atorvastatin Calcium 40 MG TABLET PO (21:56)
[2023-03-24] MEDS: Latanoprost 0.005 % Ophth Sol 2.5 ML DROPS 1 DROP EYE-BOTH (21:57)
[2023-03-24] MEDS: Dorzolamide/Timolo 2.23%/0.68% 10 ML DRBTL 1 DROP EYE-BOTH (21:57)
--- NOTE | 2023-03-25 | ECG_ITS ---
Test Reason : chf Blood Pressure : / mmHG Vent. Rate : 082 BPM Atrial Rate : 082 BPM P-R Int : 142 ms QRS Dur : 082 ms QT Int : 382 ms P-R-T Axes : 061 084 -25 degrees QTc Int : 446 ms Normal sinus rhythm Abnormal QRS-T angle, consider primary T wave abnormality Abnormal ECG No previous ECGs available Referred By: Avelino Chong Electronically Signed By:Avelino Chong
[2023-03-25 04:00] VITALS: BP 129/70; PULSE 85; RESP 15; TEMP 36.7; O2SAT 96
[2023-03-25] MEDS: Heparin Sodium,Porcine 5,000 UNIT/ML VIAL 5000 UNIT SUBCUT ×3 (06:02→22:11)
[2023-03-25 07:23] LABS: Glucose, Whole Blood 119 mg/dL (60-115)
[2023-03-25 07:51] VITALS: BP 133/78; PULSE 86; RESP 20; TEMP 36.7; O2SAT 94
[2023-03-25 08:13] LABS: Hematocrit 27.9 % (42.0-52.0); Hemoglobin 8.8 g/dl (14.0-18.0); Mean Corpuscular HGB Conc 31.5 g/dl (31.0-36.0); Mean Corpuscular Hemoglobin 29.4 pg (27.0-33.0); Mean Corpuscular Volume 93.3 fL (80.0-98.0); Mean Platelet Volume 10.2 fL (9.4-12.4); Platelet Count 353 X10*3/uL (160-400); Red Blood Count 2.99 X10*6/uL (4.60-5.80); Red Cell Distribution Width 15.1 % (11.0-16.0); White Blood Count 6.1 X10*3/uL (4.8-10.8)
[2023-03-25 08:33] LABS: B Type Natriuretic Peptide 2789 pg/mL (<100)
[2023-03-25 08:36] LABS: Anion Gap 16 (12-20); Blood Urea Nitrogen 71 mg/dL (9-16); Calcium 8.4 mg/dL (8.4-10.2); Carbon Dioxide 26 mmol/L (22-29); Chloride 104 mmol/L (96-108); Estimated Glomerular Filt Rate 16; Glucose Random 109 mg/dL (60-115); Potassium 5.6 mmol/L (3.3-5.1); Sodium 140 mmol/L (135-145)
[2023-03-25] MEDS: Isosorbide Mononitrate 60 MG TAB.ER.24H PO (09:44)
[2023-03-25] MEDS: hydrALAZINE HCl 25 MG TABLET PO ×3 (09:44→22:11)
[2023-03-25] MEDS: 0.9 % Sodium Chloride Flush 3 ML SYRINGE IVFLUSH (09:44)
[2023-03-25] MEDS: carvediloL 6.25 MG TABLET PO ×2 (09:45→22:11)
[2023-03-25] MEDS: Aspirin Enteric Coated 81 MG TABLET.DR PO (09:45)
[2023-03-25] MEDS: Dorzolamide/Timolo 2.23%/0.68% 10 ML DRBTL 1 DROP EYE-BOTH ×2 (09:45→22:12)
[2023-03-25] MEDS: Sodium Zirconium Cyclosilicate 5 GM POWD.PACK PO (10:17)
--- NOTE | 2023-03-25 11:29 | PM.PNNEP ---
Subjective Subjective Date of Service: 03/25/23 Interval history: Seen AM. Edema better Physical Exam Vital Signs: Vital Signs: Last Vital Signs Temp 98.1 F 03/25/23 07:51 Pulse 86 03/25/23 07:51 Resp 20 03/25/23 07:51 BP 133/78 03/25/23 07:51 Pulse Ox 94 03/25/23 07:51 O2 Del Method Room Air 03/25/23 07:51 BMI result Body Mass Index 23.9 Const: General: no acute distress Orientation/consciousness: patient oriented x3 Eyes: EOM: EOMs intact bilaterally Neck: Neck: Yes supple Resp: Auscultation: diminished lung sounds Cardio: Rate: regular rate GI: Palpation (GI): Soft to palpation Neuro: General: patient oriented x3 and moves all extremities Objective Data Labs 03/25/23 06:59 03/25/23 06:59 Labs: Laboratory Results - last 24 hr 03/24/23 03/24/23 03/24/23 11:08 16:27 20:48 WBC RBC Hgb Hct MCV MCH MCHC RDW Plt Count MPV Absolute Nucleated RBC Nucleated RBC % (auto) Sodium Potassium Chloride Carbon Dioxide Anion Gap BUN Creatinine Estim Creat Clear Calc Estimated GFR POC Glucose 214 H 128 H 166 H Random Glucose Calcium B-Natriuretic Peptide 03/25/23 03/25/23 03/25/23 06:59 06:59 06:59 WBC 6.1 RBC 2.99 L Hgb 8.8 L D Hct 27.9 L D MCV 93.3 MCH 29.4 MCHC 31.5 RDW 15.1 Plt Count 353 MPV 10.2 Absolute Nucleated RBC 0.000 Nucleated RBC % (auto) 0.0 Sodium 140 Potassium 5.6 H Chloride 104 Carbon Dioxide 26 Anion Gap 16 BUN 71 H Creatinine 3.76 H Estim Creat Clear Calc 19.0 Estimated GFR 16 POC Glucose Random Glucose 109 Calcium 8.4 D B-Natriuretic Peptide 2789 H 03/25/23 07:19 WBC RBC Hgb Hct MCV MCH MCHC RDW Plt Count MPV Absolute Nucleated RBC Nucleated RBC % (auto) Sodium Potassium Chloride Carbon Dioxide Anion Gap BUN Creatinine Estim Creat Clear Calc Estimated GFR POC Glucose 119 H Random Glucose Calcium B-Natriuretic Peptide Procedures Date of Service Date of Service: 03/25/23 Assessment & Plan Assessment and plan (1) Acute kidney injury superimposed on chronic kidney disease: Status: Acute Assessment and Plan: Has 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 Currently on lasix IV bid-switched to lasix drip 10 mg/hr No ACEI/ARB/Entresto for now; Switched to Carvedilol; On hydralazine/Imdur Has proteinuria- ? Has infiltrative cardiomyopathy; C/W rest of current mgt Progress Note: Quality Stroke Does the patient have a stroke diagnosis?: No
[2023-03-25 11:37] LABS: Glucose, Whole Blood 190 mg/dL (60-115)
[2023-03-25] MEDS: Insulin Lispro 100 UNIT/ML 3 ML VIAL SUBCUT ×2 (12:03→17:11)
[2023-03-25 12:18] VITALS: BP 128/76; PULSE 82; RESP 20; TEMP 36.8; O2SAT 96
--- NOTE | 2023-03-25 12:38 | PM.PNCARD ---
Subjective Subjective Date of Service: 03/25/23 Interval history: Seen examined at bedside. Denying any shortness of breath. Still has peripheral edema and currently is on Lasix drip. Echocardiography has shown EF of 50-55% with inferior wall motion abnormality. Physical Exam Vital Signs: Last Vital Signs Temp 98.3 F 03/25/23 12:18 Pulse 82 03/25/23 12:18 Resp 20 03/25/23 12:18 BP 128/76 03/25/23 12:18 Pulse Ox 96 03/25/23 12:18 O2 Del Method Room Air 03/25/23 12:18 BMI result Body Mass Index 23.9 GENERAL APPEARANCE: in no acute distress, pleasant. NECK: no carotid bruit, positive jugular venous distention. SKIN: no suspicious lesions, warm and dry. HEART: no murmurs, regular rate and rhythm. LUNGS: clear to auscultation bilaterally. ABDOMEN: soft, nontender. EXTREMITIES: ++ edema. PERIPHERAL PULSES: equal. NEUROLOGIC: No gross deficits, AAO X 3 Objective Labs and Meds 03/25/23 06:59 03/25/23 06:59 Lab results: Laboratory Results - last 24 hr 03/24/23 03/24/23 03/25/23 16:27 20:48 06:59 WBC 6.1 RBC 2.99 L Hgb 8.8 L D Hct 27.9 L D MCV 93.3 MCH 29.4 MCHC 31.5 RDW 15.1 Plt Count 353 MPV 10.2 Absolute Nucleated RBC 0.000 Nucleated RBC % (auto) 0.0 Sodium Potassium Chloride Carbon Dioxide Anion Gap BUN Creatinine Estim Creat Clear Calc Estimated GFR POC Glucose 128 H 166 H Random Glucose Calcium B-Natriuretic Peptide 03/25/23 03/25/23 03/25/23 06:59 06:59 07:19 WBC RBC Hgb Hct MCV MCH MCHC RDW Plt Count MPV Absolute Nucleated RBC Nucleated RBC % (auto) Sodium 140 Potassium 5.6 H Chloride 104 Carbon Dioxide 26 Anion Gap 16 BUN 71 H Creatinine 3.76 H Estim Creat Clear Calc 19.0 Estimated GFR 16 POC Glucose 119 H Random Glucose 109 Calcium 8.4 D B-Natriuretic Peptide 2789 H 03/25/23 11:33 WBC RBC Hgb Hct MCV MCH MCHC RDW Plt Count MPV Absolute Nucleated RBC Nucleated RBC % (auto) Sodium Potassium Chloride Carbon Dioxide Anion Gap BUN Creatinine Estim Creat Clear Calc Estimated GFR POC Glucose 190 H Random Glucose Calcium B-Natriuretic Peptide Progress Note: A&P Assessment and plan (1) Congestive heart failure: Status: Acute (2) Acute kidney injury superimposed on chronic kidney disease: Status: Acute Plan 62-year-old gentleman who is presenting with congestive heart failure. His ejection fraction was 15% while he was admitted at [facility] but has improved 55%. He has inferior wall motion abnormality and probably has underlying coronary artery disease which will need further workup as outpatient. He has advanced kidney disease. 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 He has mild left ventricular hypertrophy any straining Banerjee has some apical sparing. I do not think he is in any shape to get cardiac MRI with gadolinium given his advanced kidney issues. I think we can start with serum and urine immunofixation. Still significantly volume overloaded. Continue diuretics. Thank you for allowing me to participate in the care of your patient. Please feel free to contact me if you have any questions. Time Spent With Patient Time: Total time managing care of this patient today _35__ minutes. Progress Note: Quality Stroke Does the patient have a stroke diagnosis?: No Procedures Date of Service Date of Service: 03/25/23
--- NOTE | 2023-03-25 13:26 | MHC.CM.PN ---
EMR REVIEWED, PT W/CHF AND GERSON, PT REMAINS ON LASIX DRIP W/PERIPHERAL EDEMA, NO PLAN FOR D/C AT THIS TIME, CM WILL CONT TO FOLLOW D/C NEEDS.
--- NOTE | 2023-03-25 14:18 | HO.PM.IMPN ---
Subjective Subjective Date of Service: 03/25/23 Interval History: seen and examined this morning follow up for anasarca, renal failure, cardiomyopathy no sob, no chest pain, no abdominal pain continues to decline straight cath or murillo Review of Systems Review of Systems: Yes all other systems are reviewed and are negative Constitutional Constitutional: Denies chills and Denies fever(s) ENT Ears, Nose, Mouth, and Throat: Denies dizziness Cardiovascular Cardiovascular: Denies chest pain, Denies palpitations and Denies dyspnea Respiratory Respiratory: Denies cough and Denies dyspnea Gastrointestinal Gastrointestinal: Denies abdominal pain, Denies nausea and Denies vomiting Neurologic Neurologic: Denies dizziness Endocrine Endocrine: Denies palpitations Physical Exam Vital Signs: Vital Signs: Last Vital Signs Temp 98.3 F 03/25/23 12:18 Pulse 82 03/25/23 12:18 Resp 20 03/25/23 12:18 BP 128/76 03/25/23 12:18 Pulse Ox 96 03/25/23 12:18 O2 Del Method Room Air 03/25/23 12:18 BMI result Body Mass Index 23.9 Const: General: comfortable, no acute distress, alert and awake Nutritional Appearance: average body habitus Orientation/consciousness: patient oriented x3 Resp: Effort & Inspection: normal respiratory effort and able to speak in complete sentences Auscultation: clear to auscultation bilaterally Cardio: Rate: regular rate GI: Inspection: No distended Palpation (GI): Soft to palpation and nontender Neuro: General: patient oriented x3 and CN's II-XI intact bilaterally Extrem: Other: able to move all 4 extremities spontaneously b/l 3+ pitting edema lower extremities - improving Objective Data Active Medications Aspirin (Aspirin Enteric Coated 81 Mg Tablet.) 81 mg PO DAILY [facility] Last Admin: 03/25/23 09:45 Dose: 81 mg Documented By: KENNY Atorvastatin Calcium (Atorvastatin Calcium 40 Mg Tablet) 40 mg PO BEDTIME [facility] Last Admin: 03/24/23 21:56 Dose: 40 mg Documented By: TERESSA Carvedilol (Carvedilol 6.25 Mg Tablet) 6.25 mg PO BID [facility]; Protocol Last Admin: 03/25/23 09:45 Dose: 6.25 mg Documented By: KENNY Dorzolamide/Timolol (Dorzolamide/Timolo 2.23%/0.68% 10 Ml Drbtl) 1 drop EYE-BOTH BID [facility] Last Admin: 03/25/23 09:45 Dose: 1 drop Documented By: KENNY Glucose (Glucose Gel 15 Gm Gel..Gram.) 15 gm PO Q15M PRN; Protocol PRN Reason: per Hypoglycemia Standing Ord. Heparin Sodium (Porcine) (Heparin Sodium,Porcine 5,000 Unit/Ml Vial) 5,000 unit SUBCUT Q8H [facility] Last Admin: 03/25/23 06:02 Dose: 5,000 unit Documented By: TERESSA Hydralazine HCl (Hydralazine Hcl 25 Mg Tablet) 25 mg PO TID [facility]; Protocol Last Admin: 03/25/23 09:44 Dose: 25 mg Documented By: KENNY Dextrose (D10) 250 mls @ 750 mls/hr IV Q15M PRN; Protocol PRN Reason: per Hypoglycemia Standing Ord. Furosemide 200 mg/ Sodium (Chloride) 100 mls @ 5 mls/hr IVCONT .Q20H [facility] Last Admin: 03/25/23 12:03 Dose: Not Given Documented By: KENNY Non-Admin Reason: IV Running Insulin Human Lispro (Insulin Lispro 100 Unit/Ml 3 Ml Vial) 0 unit SUBCUT QIDACHS [facility]; Protocol Last Admin: 03/25/23 12:03 Dose: 2 unit Documented By: KENNY Isosorbide Mononitrate (Isosorbide Mononitrate 60 Mg Tab.Er.24h) 60 mg PO DAILY [facility]; Protocol Last Admin: 03/25/23 09:44 Dose: 60 mg Documented By: KENNY Latanoprost (Latanoprost 0.005 % Ophth Jaymie 2.5 Ml Drops) 1 drop EYE-BOTH BEDTIME [facility] Last Admin: 03/24/23 21:57 Dose: 1 drop Documented By: TERESSA Pharmacy Consult (Consult Rx Perform Med Rec) 1 each MISCELLANE ONCE PRN PRN Reason: Consult order Sodium Chloride (0.9 % Sodium Chloride Flush 3 Ml Syringe) 3 ml IVFLUSH QSHIFT [facility] Last Admin: 03/25/23 09:44 Dose: 3 ml Documented By: HO.N-RUEAN Tamsulosin HCl (Tamsulosin Hcl 0.4 Mg Capsule) 0.4 mg PO BEDTIME [facility] Last Admin: 03/24/23 21:56 Dose: 0.4 mg Documented By: TERESSA Labs 03/25/23 06:59 03/25/23 06:59 Labs: Laboratory Results - last 24 hr 03/24/23 03/24/23 03/25/23 16:27 20:48 06:59 MCV 93.3 MCH 29.4 MCHC 31.5 RDW 15.1 Plt Count 353 MPV 10.2 Absolute Nucleated RBC 0.000 Nucleated RBC % (auto) 0.0 Anion Gap Estim Creat Clear Calc Estimated GFR POC Glucose 128 H 166 H Random Glucose Calcium B-Natriuretic Peptide 03/25/23 03/25/23 03/25/23 06:59 06:59 07:19 MCV MCH MCHC RDW Plt Count MPV Absolute Nucleated RBC Nucleated RBC % (auto) Anion Gap 16 Estim Creat Clear Calc 19.0 Estimated GFR 16 POC Glucose 119 H Random Glucose 109 Calcium 8.4 D B-Natriuretic Peptide 2789 H 03/25/23 11:33 MCV MCH MCHC RDW Plt Count MPV Absolute Nucleated RBC Nucleated RBC % (auto) Anion Gap Estim Creat Clear Calc Estimated GFR POC Glucose 190 H Random Glucose Calcium B-Natriuretic Peptide Assessment and Plan (1) Acute kidney injury superimposed on chronic kidney disease: Status: Acute (2) Congestive heart failure: Status: Acute Plan 62M PMH cardiomyopathy (EF15%, grade III diastolic dysfunction) recently diagnosed at [facility] [place] january 2023 during hospitalization for strep pneumonia with bacteremia, DM, CKD III with proteinuria, HTN, BPH with urinary retention, presented with lower extremity edema. Anasarca due to acute on chronic chf with reduced EF and 3rd spacing from proteinuria transitioned to IV cont lasix 10mg/hr difficult to obtain accurate Is&Os due to urinary retention, overall negative fluid balance nephrology following GERSON on CKD4 SCr 2.5 on last d/c from [facility] [place] earlier this month. likely cardiorenal no obstruction on renal US but urinary retention contributing factor, patient declining catheter nephro following not much change in creatinine continue diuresis as above monitor bmp closely hyperkalemia k 5.6 lokelma follow bmp Hypomagnesemia Replace and follow urinary retention continues to decline murillo/straight cath flomax Cardiomyopathy EF 15%, grade III diastolic dysfunction; repeat echo done and EF improved to 55% with WMA per cardiology note - official report pending declined cardiac catheterization at [facility] [place] ?infiltrative process - may need further work up to rule out amyloidosis continue lasix as above toprol xl changed to coreg per neprho rec Chronic normocytic anemia likely anemia of chronic dz in setting of CKD no evidence of blood loss s/p transfused 1u RBC H/H improved post transfusion HTN hydralazine, imdur, coreg DM insulin sliding scale, monitor pocs dvt prophylaxis - hep sq full code attending - dr. Knapp requires ongoing inpatient stay patient for significant edema requiring iv diuresis likely to require close monitoring and and several day, daily labs due to concomitant GERSON on CKDIII Time Spent With Patient Time: Total time managing care of this patient today ____ minutes. Quality Stroke Does the patient have a stroke diagnosis?: No VTE Prior VTE?: No VTE Risk Level:: Medical - moderate - high VTE Device Contraindication: Treatment Not Indicated VTE Drug Contraindication: N/A - Med Ordered
[2023-03-25] MEDS: Furosemide 200 MG in 0.9 % Sodium Chloride 80 ML IVCONT (14:36)
[2023-03-25 15:37] VITALS: BP 113/59; PULSE 82; RESP 13; TEMP 36; O2SAT 94
[2023-03-25 16:46] LABS: Glucose, Whole Blood 162 mg/dL (60-115)
[2023-03-25 20:00] VITALS: BP 137/81; PULSE 80; RESP 13; TEMP 36.3; O2SAT 95
[2023-03-25 21:00] LABS: Glucose, Whole Blood 139 mg/dL (60-115)
[2023-03-25] MEDS: Atorvastatin Calcium 40 MG TABLET PO (22:11)
[2023-03-25] MEDS: Tamsulosin HCL 0.4 MG CAPSULE PO (22:11)
[2023-03-25] MEDS: Latanoprost 0.005 % Ophth Sol 2.5 ML DROPS 1 DROP EYE-BOTH (22:12)
[2023-03-26] VITALS (7 sets, daily range): BP systolic 124–142; BP diastolic 72–86; PULSE 80–85; RESP 16–20; TEMP 36.5–36.8; O2SAT 96–97
[2023-03-26] MEDS: 0.9 % Sodium Chloride Flush 3 ML SYRINGE IVFLUSH ×2 (00:29→09:29)
--- NOTE | 2023-03-26 05:37 | PC.NURSE ---
Bladder scan ordered q shift. 681mls was scanned. Patient refused characterization. notified, will continue to monitor.
[2023-03-26] MEDS: Heparin Sodium,Porcine 5,000 UNIT/ML VIAL 5000 UNIT SUBCUT ×2 (06:16→15:29)
[2023-03-26 07:16] LABS: Anion Gap 16 (12-20); Blood Urea Nitrogen 73 mg/dL (9-16); Calcium 8.5 mg/dL (8.4-10.2); Carbon Dioxide 25 mmol/L (22-29); Chloride 103 mmol/L (96-108); Creatinine Clr Calc Pharmacy 19.4; Estimated Glomerular Filt Rate 17; Glucose Random 128 mg/dL (60-115); Potassium 5.4 mmol/L (3.3-5.1); Sodium 139 mmol/L (135-145)
[2023-03-26 07:57] LABS: Glucose, Whole Blood 118 mg/dL (60-115)
[2023-03-26] MEDS: carvediloL 6.25 MG TABLET PO ×2 (09:29→21:45)
[2023-03-26] MEDS: Isosorbide Mononitrate 60 MG TAB.ER.24H PO (09:29)
[2023-03-26] MEDS: hydrALAZINE HCl 25 MG TABLET PO ×3 (09:29→21:45)
[2023-03-26] MEDS: Dorzolamide/Timolo 2.23%/0.68% 10 ML DRBTL 1 DROP EYE-BOTH ×2 (09:29→21:46)
[2023-03-26] MEDS: Aspirin Enteric Coated 81 MG TABLET.DR PO (09:29)
[2023-03-26] MEDS: Furosemide 200 MG in 0.9 % Sodium Chloride 80 ML IVCONT (09:37)
--- NOTE | 2023-03-26 10:16 | P.PNCA_ITS ---
Subjective Subjective Date of Service: 03/26/23 Interval history: Seen examined at bedside. Still has peripheral edema. Mild JVD. Feeling better. Physical Exam Vital Signs: Last Vital Signs Temp 98.0 F 03/26/23 07:55 Pulse 82 03/26/23 07:55 Resp 18 03/26/23 07:55 BP 139/78 03/26/23 07:55 Pulse Ox 96 03/26/23 07:55 O2 Del Method Room Air 03/26/23 07:55 BMI result Body Mass Index 23.9 GENERAL APPEARANCE: in no acute distress, pleasant. NECK: no carotid bruit, positive jugular venous distention. SKIN: no suspicious lesions, warm and dry. HEART: no murmurs, regular rate and rhythm. LUNGS: clear to auscultation bilaterally. ABDOMEN: soft, nontender. EXTREMITIES: ++ edema. PERIPHERAL PULSES: equal. NEUROLOGIC: No gross deficits, AAO X 3 Objective Labs and Meds 03/25/23 06:59 03/26/23 06:38 Lab results: Laboratory Results - last 24 hr 03/25/23 03/25/23 03/25/23 11:33 16:38 20:57 Sodium Potassium Chloride Carbon Dioxide Anion Gap BUN Creatinine Estim Creat Clear Calc Estimated GFR POC Glucose 190 H 162 H 139 H Random Glucose Calcium 03/26/23 03/26/23 06:38 07:45 Sodium 139 Potassium 5.4 H Chloride 103 Carbon Dioxide 25 Anion Gap 16 BUN 73 H Creatinine 3.68 H Estim Creat Clear Calc 19.4 Estimated GFR 17 POC Glucose 118 H Random Glucose 128 H Calcium 8.5 Progress Note: A&P Assessment and plan (1) Congestive heart failure: Status: Acute (2) Acute kidney injury superimposed on chronic kidney disease: Status: Acute Plan [age] year gentleman with diastolic heart failure and the advanced kidney issues. There is some concern about amyloidosis. He will need cardiac MRI. I have sent urine and serum immunofixation to see if there is any light chains. Overall volume overloaded. Continue IV diuretics for now. Will eventually need ischemic evaluation too as outpatient. Thank you for allowing me to participate in the care of your patient. Please feel free to con tact me if you have any questions. Time Spent With Patient Time: Total time managing care of this patient today ____ minutes. Progress Note: Quality Stroke Does the patient have a stroke diagnosis?: No Procedures Date of Service Date of Service: 03/26/23
--- NOTE | 2023-03-26 10:18 | PM.PNNEP ---
Subjective Subjective Date of Service: 03/26/23 Interval history: seen and examined this morning.continues to decline straight cath or murillo . Feels improved Physical Exam Vital Signs: Vital Signs: Last Vital Signs Temp 98.0 F 03/26/23 07:55 Pulse 82 03/26/23 07:55 Resp 18 03/26/23 07:55 BP 139/78 03/26/23 07:55 Pulse Ox 96 03/26/23 07:55 O2 Del Method Room Air 03/26/23 07:55 BMI result Body Mass Index 23.9 Const: General: no acute distress Orientation/consciousness: patient oriented x3 Eyes: EOM: EOMs intact bilaterally Resp: Auscultation: diminished lung sounds Cardio: Rate: regular rate GI: Palpation (GI): Soft to palpation Neuro: General: patient oriented x3 and moves all extremities Extrem: General: Yes edema Objective Data Labs 03/25/23 06:59 03/26/23 06:38 Labs: Laboratory Results - last 24 hr 03/25/23 03/25/23 03/25/23 11:33 16:38 20:57 Sodium Potassium Chloride Carbon Dioxide Anion Gap BUN Creatinine Estim Creat Clear Calc Estimated GFR POC Glucose 190 H 162 H 139 H Random Glucose Calcium 03/26/23 03/26/23 06:38 07:45 Sodium 139 Potassium 5.4 H Chloride 103 Carbon Dioxide 25 Anion Gap 16 BUN 73 H Creatinine 3.68 H Estim Creat Clear Calc 19.4 Estimated GFR 17 POC Glucose 118 H Random Glucose 128 H Calcium 8.5 Procedures Date of Service Date of Service: 03/26/23 Assessment & Plan Assessment and plan (1) Acute kidney injury superimposed on chronic kidney disease: Status: Acute Assessment and Plan: Has CKD 4 at baseline due to Diabetic hypertensive renal disease Had cardiomyopathy; GERSON due to CRS; Also has obstructive uropathy Volume overloaded- better. Currently on lasix drip 10 mg/hr- can be switched to PO torsemide tomorrow No ACEI/ARB/Entresto for now; On Carvedilol/ hydralazine/Imdur Has proteinuria- ? Has infiltrative cardiomyopathy; Immunofixation pending Will need renal biopsy later; C/W rest of current mgt Progress Note: Quality Stroke Does the patient have a stroke diagnosis?: No
--- NOTE | 2023-03-26 10:59 | HO.PM.IMPN ---
Subjective Subjective Date of Service: 03/26/23 Interval History: seen and examined this morning follow up for renal failure, fluid overload Continues to have urinary retention, continues to refuse catheterization Denies abdominal pain, chest pain, shortness of breath Review of Systems Review of Systems: Yes all other systems are reviewed and are negative Constitutional Constitutional: Denies chills and Denies fever(s) Cardiovascular Cardiovascular: Denies chest pain, Denies palpitations and Denies dyspnea Respiratory Respiratory: Denies cough and Denies dyspnea Gastrointestinal Gastrointestinal: Denies abdominal pain, Denies nausea and Denies vomiting Endocrine Endocrine: Denies palpitations Physical Exam Vital Signs: Vital Signs: Last Vital Signs Temp 98.0 F 03/26/23 07:55 Pulse 82 03/26/23 07:55 Resp 18 03/26/23 07:55 BP 139/78 03/26/23 07:55 Pulse Ox 96 03/26/23 07:55 O2 Del Method Room Air 03/26/23 07:55 BMI result Body Mass Index 23.9 Const: General: comfortable, no acute distress, alert and awake Nutritional Appearance: average body habitus Orientation/consciousness: patient oriented x3 Resp: Effort & Inspection: normal respiratory effort and able to speak in complete sentences Auscultation: clear to auscultation bilaterally Cardio: Rate: regular rate Heart sounds: S1 normal heart sound present and S2 normal heart sound present GI: Inspection: No distended Palpation (GI): Soft to palpation and nontender Neuro: General: patient oriented x3 and CN's II-XI intact bilaterally Extrem: Other: able to move all 4 extremities spontaneously 2-3+ pitting edema to sotomayor b/l lower extremities - continues to improve Psych: Affect: Blunted affect present Objective Data Active Medications Aspirin (Aspirin Enteric Coated 81 Mg Tablet.) 81 mg PO DAILY [facility] Last Admin: 03/26/23 09:29 Dose: 81 mg Documented By: SEBASTIÁN Atorvastatin Calcium (Atorvastatin Calcium 40 Mg Tablet) 40 mg PO BEDTIME [facility] Last Admin: 03/25/23 22:11 Dose: 40 mg Documented By: RICHMOND Carvedilol (Carvedilol 6.25 Mg Tablet) 6.25 mg PO BID [facility]; Protocol Last Admin: 03/26/23 09:29 Dose: 6.25 mg Documented By: SEBASTIÁN Dorzolamide/Timolol (Dorzolamide/Timolo 2.23%/0.68% 10 Ml Drbtl) 1 drop EYE-BOTH BID [facility] Last Admin: 03/26/23 09:29 Dose: 1 drop Documented By: SEBASTIÁN Glucose (Glucose Gel 15 Gm Gel..Gram.) 15 gm PO Q15M PRN; Protocol PRN Reason: per Hypoglycemia Standing Ord. Heparin Sodium (Porcine) (Heparin Sodium,Porcine 5,000 Unit/Ml Vial) 5,000 unit SUBCUT Q8H [facility] Last Admin: 03/26/23 06:16 Dose: 5,000 unit Documented By: RICHMOND Hydralazine HCl (Hydralazine Hcl 25 Mg Tablet) 25 mg PO TID [facility]; Protocol Last Admin: 03/26/23 09:29 Dose: 25 mg Documented By: SEBASTIÁN Dextrose (D10) 250 mls @ 750 mls/hr IV Q15M PRN; Protocol PRN Reason: per Hypoglycemia Standing Ord. Furosemide 200 mg/ Sodium (Chloride) 100 mls @ 5 mls/hr IVCONT .Q20H [facility] Last Admin: 03/26/23 09:37 Dose: 10 mg/hr, 5 mls/hr Documented By: SEBASTIÁN Insulin Human Lispro (Insulin Lispro 100 Unit/Ml 3 Ml Vial) 0 unit SUBCUT QIDACHS [facility]; Protocol Last Admin: 03/26/23 08:16 Dose: Not Given Documented By: SEBASTIÁN Non-Admin Reason: No Insulin Coverage Isosorbide Mononitrate (Isosorbide Mononitrate 60 Mg Tab.Er.24h) 60 mg PO DAILY [facility]; Protocol Last Admin: 03/26/23 09:29 Dose: 60 mg Documented By: SEBASTIÁN Latanoprost (Latanoprost 0.005 % Ophth Jaymie 2.5 Ml Drops) 1 drop EYE-BOTH BEDTIME [facility] Last Admin: 03/25/23 22:12 Dose: 1 drop Documented By: RICHMOND Pharmacy Consult (Consult Rx Perform Med Rec) 1 each MISCELLANE ONCE PRN PRN Reason: Consult order Sodium Chloride (0.9 % Sodium Chloride Flush 3 Ml Syringe) 3 ml IVFLUSH QSHIFT [facility] Last Admin: 03/26/23 09:29 Dose: 3 ml Documented By: SEBASTIÁN Tamsulosin HCl (Tamsulosin Hcl 0.4 Mg Capsule) 0.4 mg PO BEDTIME [facility] Last Admin: 03/25/23 22:11 Dose: 0.4 mg Documented By: RICHMOND Labs 03/25/23 06:59 03/26/23 06:38 Labs: Laboratory Results - last 24 hr 03/25/23 03/25/23 03/25/23 11:33 16:38 20:57 Anion Gap Estim Creat Clear Calc Estimated GFR POC Glucose 190 H 162 H 139 H Random Glucose Calcium 03/26/23 03/26/23 06:38 07:45 Anion Gap 16 Estim Creat Clear Calc 19.4 Estimated GFR 17 POC Glucose 118 H Random Glucose 128 H Calcium 8.5 Assessment and Plan (1) Acute kidney injury superimposed on chronic kidney disease: Status: Acute (2) Urinary retention: Status: Acute Plan 62M PMH cardiomyopathy (EF15%, grade III diastolic dysfunction) [place] [facility] [place] hospitalization for strep pneumonia with bacteremia, DM, CKD III with proteinuria, HTN, BPH with urinary retention, presented with lower extremity edema. Anasarca due to acute on chronic chf with reduced EF cont lasix 10mg/hr difficult to obtain accurate Is&Os due to urinary retention, overall negative fluid balance nephrology following GERSON on CKD4 SCr 2.5 on [place] [facility] [place]. likely cardiorenal no obstruction on renal US but urinary retention contributing factor, patient declining catheter nephro following not much change in creatinine continue diuresis as above monitor bmp closely concern for amyloidosis causing renal failure and cardiomyopathy - will need outpatient kidney bx, cardiac MR, ischemic work up. immunofixation pending Cardiomyopathy EF 15%, grade III diastolic dysfunction; repeat echo done and EF improved to 55% with WMA declined cardiac [place] [facility] [place] - may need further work up to rule out amyloidosis as above continue lasix as above toprol xl changed to coreg per neprho rec hyperkalemia k 5.4 lokelma follow bmp Hypomagnesemia Replace and follow urinary retention continues to decline murillo/straight cath despite multiple attempts at education regarding importance flomax Chronic normocytic anemia likely anemia of chronic dz in setting of CKD no evidence of blood loss s/p transfused 1u RBC H/H improved post transfusion HTN hydralazine, imdur, coreg DM insulin sliding scale, monitor pocs dvt prophylaxis - hep sq full code attending - dr. Knapp requires ongoing inpatient stay patient for significant edema requiring iv diuresis requiring close monitoring daily labs due to concomitant GERSON on CKDIII Time Spent With Patient Time: Total time managing care of this patient today ____ minutes. Quality Stroke Does the patient have a stroke diagnosis?: No VTE Prior VTE?: No VTE Risk Level:: Medical - moderate - high VTE Device Contraindication: Treatment Not Indicated VTE Drug Contraindication: N/A - Med Ordered
[2023-03-26 11:22] LABS: Glucose, Whole Blood 194 mg/dL (60-115)
[2023-03-26] MEDS: Insulin Lispro 100 UNIT/ML 3 ML VIAL SUBCUT ×2 (11:37→16:53)
[2023-03-26] MEDS: Sodium Zirconium Cyclosilicate 5 GM POWD.PACK PO (11:39)
[2023-03-26 13:24] LABS: Magnesium 1.5 mg/dL (1.6-2.6)
[2023-03-26 15:49] LABS: Glucose, Whole Blood 203 mg/dL (60-115)
[2023-03-26 20:20] LABS: Glucose, Whole Blood 110 mg/dL (60-115)
[2023-03-26] MEDS: Atorvastatin Calcium 40 MG TABLET PO (21:45)
[2023-03-26] MEDS: Tamsulosin HCL 0.4 MG CAPSULE PO (21:45)
[2023-03-26] MEDS: Latanoprost 0.005 % Ophth Sol 2.5 ML DROPS 1 DROP EYE-BOTH (21:46)
[2023-03-27 03:42] VITALS: BP 133/81; PULSE 83; RESP 18; TEMP 36.7; O2SAT 98
[2023-03-27 05:14] LABS: Anion Gap 14 (12-20); Blood Urea Nitrogen 75 mg/dL (9-16); Calcium 8.6 mg/dL (8.4-10.2); Carbon Dioxide 28 mmol/L (22-29); Chloride 101 mmol/L (96-108); Estimated Glomerular Filt Rate 16; Glucose Random 115 mg/dL (60-115); Potassium 5.4 mmol/L (3.3-5.1); Sodium 138 mmol/L (135-145)
[2023-03-27] MEDS: Furosemide 200 MG in 0.9 % Sodium Chloride 80 ML IVCONT (05:50)
[2023-03-27 07:06] VITALS: BP 119/64; PULSE 83; RESP 20; TEMP 36.6; O2SAT 95
[2023-03-27 07:46] LABS: Glucose, Whole Blood 120 mg/dL (60-115)
[2023-03-27] MEDS: Sodium Zirconium Cyclosilicate 10 GM POWD.PACK PO (08:01)
[2023-03-27] MEDS: Aspirin Enteric Coated 81 MG TABLET.DR PO (08:01)
[2023-03-27] MEDS: Isosorbide Mononitrate 60 MG TAB.ER.24H PO (08:01)
[2023-03-27] MEDS: hydrALAZINE HCl 25 MG TABLET PO ×3 (08:01→21:03)
[2023-03-27] MEDS: carvediloL 6.25 MG TABLET PO ×2 (08:01→21:03)
[2023-03-27] MEDS: 0.9 % Sodium Chloride Flush 3 ML SYRINGE IVFLUSH ×3 (08:02→21:11)
[2023-03-27] MEDS: Dorzolamide/Timolo 2.23%/0.68% 10 ML DRBTL 1 DROP EYE-BOTH ×2 (08:03→21:05)
--- NOTE | 2023-03-27 08:11 | PC.NURSE ---
Bladder scan ordered q shift, showed 424mls. Patient refused straight cath. notified, will continue to monitor.
--- NOTE | 2023-03-27 09:12 | PM.PNNEP ---
Subjective Subjective Date of Service: 03/28/23 Interval history: Events noted On Lasix drip Continues to have urinary retention, continues to refuse catheterization Denies abdominal pain, chest pain, shortness of breath Physical Exam Vital Signs: Vital Signs: Last Vital Signs Temp 97.9 F 03/27/23 07:06 Pulse 83 03/27/23 07:06 Resp 20 03/27/23 07:06 BP 119/64 03/27/23 07:06 Pulse Ox 95 03/27/23 07:06 O2 Del Method Room Air 03/27/23 07:06 BMI result Body Mass Index 23.9 Const: General: comfortable and no acute distress Orientation/consciousness: patient oriented x3 Eyes: EOM: EOMs intact bilaterally Neck: Neck: Yes supple Resp: Auscultation: diminished lung sounds Cardio: Rate: regular rate GI: Palpation (GI): Soft to palpation Skin: General skin exam: no rashes or lesions noted Neuro: General: patient oriented x3 and moves all extremities Extrem: General: Yes edema Objective Data Labs 03/25/23 06:59 03/27/23 04:23 Labs: Laboratory Results - last 24 hr 03/26/23 03/26/23 03/26/23 06:38 11:18 15:45 Sodium Potassium Chloride Carbon Dioxide Anion Gap BUN Creatinine Estim Creat Clear Calc Estimated GFR POC Glucose 194 H 203 H Random Glucose Calcium Magnesium 1.5 L 03/26/23 03/27/23 03/27/23 19:45 04: 07:39 Sodium 138 Potassium 5.4 H Chloride 101 Carbon Dioxide 28 Anion Gap 14 BUN 75 H Creatinine 3.75 H Estim Creat Clear Calc 19.0 Estimated GFR 16 POC Glucose 110 120 H Random Glucose 115 Calcium 8.6 Magnesium Procedures Date of Service Date of Service: 03/27/23 Assessment & Plan Assessment and plan (1) Acute kidney injury superimposed on chronic kidney disease: Status: Acute Assessment and Plan: 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 Currently on lasix drip 10 mg/hr- can be switched to PO Lasix 40 mg q.d. and reassess No ACEI/ARB/Entresto for now; On Carvedilol/ hydralazine/Imdur Has proteinuria- ? Has infiltrative cardiomyopathy; cardiac amyloid? Immunofixation pending Will need renal biopsy later; C/W rest of current mgt Time Spent With Patient Time: Total time managing care of this patient today ____ minutes. Progress Note: Quality Stroke Does the patient have a stroke diagnosis?: No
--- NOTE | 2023-03-27 09:52 | MHC.CM.PN ---
EMR REVIEWED, PT W/CHF AND GERSON, PT REMAINS ON LASIX DRIP W/ELEVATED POTASSIUM, [facility] UPDATED, CM WILL CONT TO FOLLOW D/C NEEDS.
[2023-03-27] MEDS: Furosemide 40 MG TABLET PO (10:49)
[2023-03-27] MEDS: Magnesium Sulfate/H2O 2 GM/50 ML PIGGYBACK IV (10:59)
[2023-03-27 11:35] VITALS: BP 123/71; PULSE 86; RESP 20; TEMP 36.6; O2SAT 94
[2023-03-27 11:41] LABS: Glucose, Whole Blood 214 mg/dL (60-115)
--- NOTE | 2023-03-27 12:26 | P.PNIM_ITS ---
Subjective Subjective Date of Service: 03/27/23 Interval History: seen and examined this morning follow up for renal failure leg edema improving no respiratory symptoms no overnight events Constitutional Constitutional: Denies chills and Denies fever(s) ENT Ears, Nose, Mouth, and Throat: Denies dizziness Cardiovascular Cardiovascular: Denies chest pain, Denies palpitations and Denies dyspnea Respiratory Respiratory: Denies cough and Denies dyspnea Gastrointestinal Gastrointestinal: Denies abdominal pain Neurologic Neurologic: Denies dizziness Endocrine Endocrine: Denies palpitations Physical Exam Vital Signs: Vital Signs: Last Vital Signs Temp 97.9 F 03/27/23 11:35 Pulse 86 03/27/23 11:35 Resp 20 03/27/23 11:35 BP 123/71 03/27/23 11:35 Pulse Ox 94 03/27/23 11:35 O2 Del Method Room Air 03/27/23 11:35 BMI result Body Mass Index 23.9 Const: General: comfortable, no acute distress, alert and awake Nutritional Appearance: average body habitus Orientation/consciousness: patient oriented x3 Resp: Effort & Inspection: normal respiratory effort and able to speak in complete sentences Auscultation: clear to auscultation bilaterally Cardio: Rate: regular rate Heart sounds: S1 normal heart sound present and S2 normal heart sound present GI: Inspection: No distended Palpation (GI): Soft to palpation and nontender Neuro: General: patient oriented x3 and CN's II-XI intact bilaterally Extrem: Other: able to move all 4 extremities spontaneously 2-3+ pitting edema to sotomayor b/l lower extremities - continues to improve Psych: Affect: Blunted affect present Objective Data Active Medications Aspirin (Aspirin Enteric Coated 81 Mg Tablet.) 81 mg PO DAILY COUNT INCLUDES THE [facility] Last Admin: 03/27/23 08:01 Dose: 81 mg Documented By: QUANG Atorvastatin Calcium (Atorvastatin Calcium 40 Mg Tablet) 40 mg PO BEDTIME COUNT INCLUDES THE [facility] Last Admin: 03/26/23 21:45 Dose: 40 mg Documented By: RICHMOND Carvedilol (Carvedilol 6.25 Mg Tablet) 6.25 mg PO BID COUNT INCLUDES THE [facility]; Protocol Last Admin: 03/27/23 08:01 Dose: 6.25 mg Documented By: QUANG Dorzolamide/Timolol (Dorzolamide/Timolo 2.23%/0.68% 10 Ml Drbtl) 1 drop EYE- BOTH BID COUNT INCLUDES THE [facility] Last Admin: 03/27/23 08:03 Dose: 1 drop Documented By: QUANG Furosemide (Furosemide 40 Mg Tablet) 40 mg PO DAILY COUNT INCLUDES THE [facility]; Protocol Last Admin: 03/27/23 10:49 Dose: 40 mg Documented By: QUANG Glucose (Glucose Gel 15 Gm Gel..Gram.) 15 gm PO Q15M PRN; Protocol PRN Reason: per Hypoglycemia Standing Ord. Heparin Sodium (Porcine) (Heparin Sodium,Porcine 5,000 Unit/Ml Vial) 5,000 unit SUBCUT Q8H COUNT INCLUDES THE [facility] Last Admin: 03/27/23 05:51 Dose: Not Given Documented By: RICHMOND Non-Admin Reason: Patient Refused Hydralazine HCl (Hydralazine Hcl 25 Mg Tablet) 25 mg PO TID COUNT INCLUDES THE [facility]; Protocol Last Admin: 03/27/23 08:01 Dose: 25 mg Documented By: QUANG Dextrose (D10) 250 mls @ 750 mls/hr IV Q15M PRN; Protocol PRN Reason: per Hypoglycemia Standing Ord. Magnesium Sulfate (Magnesium Sulfate/H2o) 2 gm in 50 mls @ 25 mls/hr IV ONCE ONE Stop: 03/27/23 12:46 Last Admin: 03/27/23 10:59 Dose: 25 mls/hr Documented By: QUANG Insulin Human Lispro (Insulin Lispro 100 Unit/Ml 3 Ml Vial) 0 unit SUBCUT QIDAC HS COUNT INCLUDES THE [facility]; Protocol Last Admin: 03/27/23 07:48 Dose: Not Given Documented By: QUANG Non-Admin Reason: No Insulin Coverage Isosorbide Mononitrate (Isosorbide Mononitrate 60 Mg Tab.Er.24h) 60 mg PO DAILY COUNT INCLUDES THE [facility]; Protocol Last Admin: 03/27/23 08:01 Dose: 60 mg Documented By: QUANG Latanoprost (Latanoprost 0.005 % Ophth Jaymie 2.5 Ml Drops) 1 drop EYE-BOTH BEDTIME COUNT INCLUDES THE [facility] Last Admin: 03/26/23 21:46 Dose: 1 drop Documented By: RICHMOND Pharmacy Consult (Consult Rx Perform Med Rec) 1 each MISCELLANE ONCE PRN PRN Reason: Consult order Sodium Chloride (0.9 % Sodium Chloride Flush 3 Ml Syringe) 3 ml IVFLUSH QSHIFT COUNT INCLUDES THE [facility] Last Admin: 03/27/23 08:02 Dose: 3 ml Documented By: QUANG Tamsulosin HCl (Tamsulosin Hcl 0.4 Mg Capsule) 0.4 mg PO BEDTIME COUNT INCLUDES THE [facility] Last Admin: 03/26/23 21:45 Dose: 0.4 mg Documented By: RICHMOND Labs 03/25/23 06:59 03/27/23 04:23 Labs: Laboratory Results - last 24 hr 03/26/23 03/26/23 03/26/23 06:38 15:45 19:45 Anion Gap Estim Creat Clear Calc Estimated GFR POC Glucose 203 H 110 Random Glucose Calcium Magnesium 1.5 L 03/27/23 03/27/23 03/27/23 04:23 07:39 11:37 Anion Gap 14 Estim Creat Clear Calc 19.0 Estimated GFR 16 POC Glucose 120 H 214 H Random Glucose 115 Calcium 8.6 Magnesium Assessment and Plan (1) Low magnesium level: Status: Acute (2) Congestive heart failure: Status: Acute (3) Urinary retention: Status: Acute (4) Acute kidney injury superimposed on chronic kidney disease: Status: Acute Plan 62M PMH cardiomyopathy (EF15%, grade III diastolic dysfunction) recently diagnosed at [facility] [place] during hospitalization for strep pneumonia with bacteremia, DM, CKD4 with proteinuria, HTN, BPH with urinary retention, presented with lower extremity edema. Anasarca due to acute on chronic chf with reduced EF stop Lasix drip, transition to oral diuretics, 40 mg Lasix daily difficult to obtain accurate Is&Os due to urinary retention, overall negative fluid balance nephrology following GERSON on CKD4 SCr 2.5 on last d/c from [facility] earlier this month. likely cardiorenal no obstruction on renal US but urinary retention contributing factor, patient declining catheter nephro following not much change in creatinine continue diuresis as above monitor bmp closely concern for amyloidosis causing renal failure and cardiomyopathy - will need outpatient kidney bx, cardiac MR, ischemic work up. immunofixation pending Cardiomyopathy EF 15%, grade III diastolic dysfunction; repeat echo done and EF improved to 55% with WMA declined cardiac catheterization at [facility] ?infiltrative process - may need further work up to rule out amyloidosis as above continue lasix as above toprol xl changed to coreg per neprho rec hyperkalemia k 5.4 lokelma follow bmp Hypomagnesemia Replace and follow urinary retention continues to decline murillo/straight cath despite multiple attempts at education regarding importance flomax Chronic normocytic anemia likely anemia of chronic dz in setting of CKD no evidence of blood loss s/p transfused 1u RBC H/H improved post transfusion HTN hydralazine, imdur, coreg DM insulin sliding scale, monitor pocs dvt prophylaxis - hep sq full code attending - dr. Knapp requires ongoing inpatient stay patient for significant edema requiring diuresis requiring close monitoring daily labs due to concomitant GERSON on CK4 Time Spent With Patient Time: Total time managing care of this patient today ____ minutes. Quality Stroke Does the patient have a stroke diagnosis?: No VTE Prior VTE?: No VTE Risk Level:: Medical - moderate - high VTE Device Contraindication: Treatment Not Indicated VTE Drug Contraindication: N/A - Med Ordered
--- NOTE | 2023-03-27 12:32 | P.CDIM_ITS ---
PROVIDER RESPONSE TEXT: To clarify, the appropriate diagnosis supported by the clinical indicators: CKD stage 4 QUERY TEXT: PHYSICIAN'S DOCUMENTATION REQUEST Date of Query: 03/27/2023 07:27 AM EDT Patient Name: EFRA MARRERO Admit Date: 03/21/2023 Dear Janna Issa, A review of the medical record indicates additional documentation may be needed. Please review below and update the documentation accordingly. Clinical Indicators: Per Nephrology Progress Note 03/26/23: Has CKD 4 at baseline due to Diabetic hypertensive renal disease Per Hospitalist Progress Note 03/26/23: GERSON on CKD4 requires ongoing inpatient stay patient for significant edema requiring iv diuresis requi ring close monitoring daily labs due to concomitant GERSON on CKDIII Please clarify which of the following accurately represents the patient's renal status: CKD stage 3a CKD stage 3b CKD stage 4 Other, please specify Other (explain) Clinically unable to determine (explain) Thank you, Jackie Jameson RN Use of terms such as suspected, likely, concern for, or probable (associated with a specific diagnosi s that is being evaluated, monitored, or treated as if it exists) are acceptable and can be coded in the inpatient se tting, when documented at the time of discharge. Please use your independent medical judgment in providing your response. THIS QUERY IS PART OF THE PERMANENT MEDICAL RECORD
[2023-03-27] MEDS: Insulin Lispro 100 UNIT/ML 3 ML VIAL SUBCUT ×2 (12:39→21:03)
--- NOTE | 2023-03-27 14:50 | PM.PNCARD ---
Subjective Subjective Date of Service: 03/27/23 Interval history: Seen and examined at bedside. Doing well. Off Lasix gtt. Physical Exam Vital Signs: Last Vital Signs Temp 97.9 F 03/27/23 11:35 Pulse 86 03/27/23 11:35 Resp 20 03/27/23 11:35 BP 123/71 03/27/23 11:35 Pulse Ox 94 03/27/23 11:35 O2 Del Method Room Air 03/27/23 11:35 BMI result Body Mass Index 23.9 GENERAL APPEARANCE: in no acute distress, pleasant. NECK: no carotid bruit, no significant jugular venous distention. SKIN: no suspicious lesions, warm and dry. HEART: no murmurs, regular rate and rhythm. LUNGS: clear to auscultation bilaterally. ABDOMEN: soft, nontender. EXTREMITIES: trace edema. PERIPHERAL PULSES: equal. NEUROLOGIC: No gross deficits, AAO X 3 Objective Labs and Meds 03/25/23 06:59 03/27/23 04:23 Lab results: Laboratory Results - last 24 hr 03/26/23 03/26/23 03/27/23 15:45 19:45 04:23 Sodium 138 Potassium 5.4 H Chloride 101 Carbon Dioxide 28 Anion Gap 14 BUN 75 H Creatinine 3.75 H Estim Creat Clear Calc 19.0 Estimated GFR 16 POC Glucose 203 H 110 Random Glucose 115 Calcium 8.6 03/27/23 03/27/23 07:39 11:37 Sodium Potassium Chloride Carbon Dioxide Anion Gap BUN Creatinine Estim Creat Clear Calc Estimated GFR POC Glucose 120 H 214 H Random Glucose Calcium Progress Note: A&P Assessment and plan (1) Congestive heart failure: Status: Acute (2) Acute kidney injury superimposed on chronic kidney disease: Status: Acute Plan 62-year-old gentleman with diastolic heart failure and advanced kidney issues. There is some concern about amyloidosis. He will need cardiac MRI as outpatient as per renal can get gadolinium. I have sent urine and serum immunofixation to see if there is any light chains. Overall volume overloaded. Change to oral diuretics. Will eventually need ischemic evaluation as outpatient. Thank you for allowing me to participate in the care of your patient. Please feel free to contact me if you have any questions. Time Spent With Patient Time: Total time managing care of this patient today ____ minutes. Progress Note: Quality Stroke Does the patient have a stroke diagnosis?: No Procedures Date of Service Date of Service: 03/27/23
[2023-03-27 15:32] VITALS: BP 126/72; PULSE 87; RESP 18; TEMP 37.1; O2SAT 97
[2023-03-27 15:54] LABS: IgA 275 mg/dL (70-320); IgG 1192 mg/dL (600-1540); IgM 82 mg/dL (50-300)
[2023-03-27 15:56] LABS: Glucose, Whole Blood 135 mg/dL (60-115)
--- NOTE | 2023-03-27 19:25 | PC.NURSE ---
Bladder scanned which came back at 571 mls. Pt. refused straight cath. aware, will continue to monitor.
[2023-03-27 20:00] VITALS: BP 138/77; PULSE 78; RESP 18; TEMP 36.7; O2SAT 97
[2023-03-27 20:16] LABS: Glucose, Whole Blood 214 mg/dL (60-115)
[2023-03-27] MEDS: Tamsulosin HCL 0.4 MG CAPSULE PO (21:03)
[2023-03-27] MEDS: Atorvastatin Calcium 40 MG TABLET PO (21:03)
[2023-03-27] MEDS: Latanoprost 0.005 % Ophth Sol 2.5 ML DROPS 1 DROP EYE-BOTH (21:09)
--- NOTE | 2023-03-27 23:47 | PC.NURSE ---
pt refused to be str. cath he was bladder scan for 650 ml . notified pt has been refusing earlier
[2023-03-28] VITALS (7 sets, daily range): BP systolic 119–128; BP diastolic 62–76; PULSE 76–88; RESP 13–20; TEMP 36.2–37.1; O2SAT 92–96
[2023-03-28 07:35] LABS: Anion Gap 16 (12-20); Blood Urea Nitrogen 77 mg/dL (9-16); Calcium 8.6 mg/dL (8.4-10.2); Carbon Dioxide 28 mmol/L (22-29); Chloride 99 mmol/L (96-108); Creatinine Clr Calc Pharmacy 18.6; Estimated Glomerular Filt Rate 16; Glucose Random 126 mg/dL (60-115); Magnesium 1.8 mg/dL (1.6-2.6); Potassium 5.3 mmol/L (3.3-5.1); Sodium 138 mmol/L (135-145)
[2023-03-28 08:18] LABS: Glucose, Whole Blood 127 mg/dL (60-115)
[2023-03-28] MEDS: carvediloL 6.25 MG TABLET PO ×2 (08:55→20:05)
[2023-03-28] MEDS: hydrALAZINE HCl 25 MG TABLET PO ×3 (08:55→20:05)
[2023-03-28] MEDS: Furosemide 40 MG TABLET PO (08:55)
[2023-03-28] MEDS: Sodium Zirconium Cyclosilicate 5 GM POWD.PACK PO (08:55)
[2023-03-28] MEDS: Isosorbide Mononitrate 60 MG TAB.ER.24H PO (08:55)
[2023-03-28] MEDS: Aspirin Enteric Coated 81 MG TABLET.DR PO (08:55)
[2023-03-28] MEDS: 0.9 % Sodium Chloride Flush 3 ML SYRINGE IVFLUSH ×3 (08:56→20:06)
[2023-03-28] MEDS: Dorzolamide/Timolo 2.23%/0.68% 10 ML DRBTL 1 DROP EYE-BOTH ×2 (08:59→20:06)
--- NOTE | 2023-03-28 11:16 | PM.DS ---
DS: Providers Provider Date of Service: 03/29/23 Date of admission: 03/20/23 21:46 Primary care physician: Chad Roche MD Consults: 03/20/23 21:44 Consult to Nephrology Routine Consulting Provider: Chapito Correia Reason for consultation: GERSON on CKD III, proteinuria 03/24/23 07:38 Consult to Cardiology Routine Consulting Provider: [facility] Reason for consultation: CHF DS: Diagnosis Discharge Diagnosis (1) Acute kidney injury superimposed on chronic kidney disease: Status: Acute DS: Summary Hospital Course Hospital Course: HP as per admitting provider 62M PMH cardiomyopathy (EF15%, grade III diastolic dysfunction) recently diagnosed [place] [facility] during hospitalization for strep pneumonia with bacteremia, DM, CKD III with proteinuria, HTN, BPH with urinary retention, presented with lower extremity edema. patient has noticed worsening lower extremity edema since discharge after second hospitalization to [facility] in february 2023 for hyopglycemia. denies sob or orthopnea. in ED noted to have 1L on bladder scan, refused catheter, labs significant for creatinine 3.92 (was 2.5 at discharge from [facility] [place] given lasix 40mg Anasarca due to acute on chronic HFpEF. Initially had CMP with EF 15% but subsequent echo, while inpatient was 55%. negative 6.8L with IV lasix drip the transitioned to oral lasix. Followed closely by nephrology. Plan for outpatient renal biopsy. Continue lasix daily GERSON on CKD4. trended down. cardiorenal, no obstruction on renal US but urinary retention contributing factor, patient declining catheter. Concern for amyloidosis causing renal failure and cardiomyopathy - will need outpatient kidney bx, cardiac MR, ischemic work up. immunofixation pending? Cardiomyopathy EF 15%, grade III diastolic dysfunction; repeat echo done and EF improved to 55% with WMA. further work up to rule out amyloidosis o/p continue toprol xl changed to coreg per nephro Hyperkalemia/Hypomagnesemia. Repleted and resolved urinary retention. Continue flomax Chronic normocytic anemia. likely anemia of chronic dz in setting of CKD. no evidence of blood loss. s/p transfused 1u RBC. H/H improved post transfusion HTN. continue hydralazine, imdur, coreg DM. continue home medications Time Spent with Patient Time attestation: Total time managing care of this patient today ____ minutes. Discharge coordination time: Greater than 30 minutes Quality: Safe Use of Opioids Does Pt have an Active Cancer Diagnosis on the Problem List?: No Quality: Stroke Does the patient have a stroke diagnosis?: No Physical Exam Vital Signs: Vital Signs: Last Vital Signs Temp 97.3 F 03/28/23 07:55 Pulse 88 03/28/23 07:55 Resp 20 03/28/23 07:55 BP 124/71 03/28/23 07:55 Pulse Ox 92 03/28/23 07:55 O2 Del Method Room Air 03/28/23 07:55 BMI result Body Mass Index 23.9 Appearing in no acute distress head is normocephalic atraumatic eyes pupils are PERRLA sclera is anicteric mouth throat mucous membranes are intact and moist neck is supple no lymphadenopathy, no JVD noted lung sounds are clear to auscultation heart regular rate rhythm, clear S1, S2 positive bowel sounds, abdomen is soft, nontender neuro patient is alert x3, no focal deficits DS: Data Data Completed and Pending Labs on day of discharge: Laboratory Results - last 24 hr 03/25/23 03/27/23 03/27/23 12:57 11:37 15:25 Sodium Potassium Chloride Carbon Dioxide Anion Gap BUN Creatinine Estim Creat Clear Calc Estimated GFR POC Glucose 214 H 135 H Random Glucose Calcium Magnesium IgG Total 1192 IgA Total 275 IgM 82 ROSMERY Interpretation SEE NOTE 03/27/23 03/28/23 03/28/23 20:11 06:36 07:57 Sodium 138 Potassium 5.3 H Chloride 99 Carbon Dioxide 28 Anion Gap 16 BUN 77 H Creatinine 3.83 H Estim Creat Clear Calc 18.6 Estimated GFR 16 POC Glucose 214 H 127 H Random Glucose 126 H Calcium 8.6 Magnesium 1.8 IgG Total IgA Total IgM ROSMERY Interpretation Discharge Plan Discharge Anticipated Discharge Date/Time: 03/29/23 13:40 Patient Disposition: Home Health Service Discharge Diagnosis: Anasarca HFpEF GERSON in CKD 4 Hyperkalemia Hypomagenesemia urinary retension Referrals: [facility] [Outside] - 1 Week Chapito Correia MD [Physician] - 1 Week (renal biopsy ) Avelino Chong MD [Physician] - 1 Week (cardiac MRI ) Chad Roche MD [Primary Care Provider] - 1 Week Discharge Medications: New furosemide 40 mg Tablet 40 mg PO DAILY Qty: 30 0RF Protocol: Hold for SBP< HOLD for SBP < : 90 carvedilol 6.25 mg Tablet 6.25 mg PO BID Qty: 60 0RF Protocol: Hold for SBP/HR < HOLD for SBP < : 90 HOLD for HR < : 60 Continued atorvastatin 40 mg Tablet 40 mg PO BEDTIME isosorbide mononitrate 30 mg Tablet Extended Release 24 Hr 60 mg PO DAILY hydralazine 25 mg Tablet 25 mg PO TID aspirin 81 mg Tablet,Delayed Release (Dr/Ec) 81 mg PO DAILY brimonidine 0.025 % Drops 1 drp ophthalmic-Right Q8H PRN (Reason: IOP) Rx Instructions: *FOR ELEVATED INTRAOCULAR PRESSURE latanoprost 0.005 % Drops 1 drp ophthalmic (eye) BEDTIME Rx Instructions: BOTH EYES albuterol sulfate [Ventolin HFA] 90 mcg/actuation Hfa Aerosol Inhaler 1 - 2 puff INHALATION Q4-6H PRN (Reason: Shortness Of Breath Or Wheezing) dorzolamide-timolol 22.3-6.8 mg/mL drops 1 drp ophthalmic (eye) BID tamsulosin 0.4 mg capsule 0.4 mg PO BEDTIME Discontinued metoprolol succinate 25 mg Tablet Extended Release 24 Hr 50 mg PO DAILY Discharge Orders: Discharge Order (Routine); Ordered 03/29/23 Ordered By: Sejal Platt Diet: Advance to usual diet Activity on Discharge: As tolerated Stand Alone Forms: Patient Portal Discharge page Care Plan Goals: Complete resolution of symptoms Health Concerns: Anasarca HFpEF GERSON in CKD 4 Hyperkalemia Hypomagenesemia urinary retension Plan of Treatment: Follow up with primary care provider as needed Take all medications as needed Follow up with cardiology for cardiac MRI Follow up with nephrology for renal ultrasound Assessment: See discharge summary
--- NOTE | 2023-03-28 11:25 | HO.PM.IMPN ---
Subjective Subjective Date of Service: 03/28/23 Interval History: seen and examined this morning follow up for renal failure leg edema improving no respiratory symptoms no overnight events Constitutional Constitutional: Denies chills and Denies fever(s) ENT Ears, Nose, Mouth, and Throat: Denies dizziness Cardiovascular Cardiovascular: Denies chest pain, Denies palpitations and Denies dyspnea Respiratory Respiratory: Denies cough and Denies dyspnea Gastrointestinal Gastrointestinal: Denies abdominal pain Neurologic Neurologic: Denies dizziness Endocrine Endocrine: Denies palpitations Physical Exam Vital Signs: Vital Signs: Last Vital Signs Temp 97.5 F 03/28/23 11:24 Pulse 83 03/28/23 11:24 Resp 20 03/28/23 11:24 BP 119/62 03/28/23 11:24 Pulse Ox 93 03/28/23 11:24 O2 Del Method Room Air 03/28/23 11:24 BMI result Body Mass Index 23.9 Appearing in no acute distress head is normocephalic atraumatic eyes pupils are PERRLA sclera is anicteric mouth throat mucous membranes are intact and moist neck is supple no lymphadenopathy, no JVD noted lung sounds are clear to auscultation heart regular rate rhythm, clear S1, S2 positive bowel sounds, abdomen is soft, nontender neuro patient is alert x3, no focal deficits Objective Data Active Medications Aspirin (Aspirin Enteric Coated 81 Mg Tablet.) 81 mg PO DAILY [facility] Last Admin: 03/28/23 08:55 Dose: 81 mg Documented By: TAINA Atorvastatin Calcium (Atorvastatin Calcium 40 Mg Tablet) 40 mg PO BEDTIME [facility] Last Admin: 03/27/23 21:03 Dose: 40 mg Documented By: JOCELIN Carvedilol (Carvedilol 6.25 Mg Tablet) 6.25 mg PO BID [facility]; Protocol Last Admin: 03/28/23 08:55 Dose: 6.25 mg Documented By: TAINA Dorzolamide/Timolol (Dorzolamide/Timolo 2.23%/0.68% 10 Ml Drbtl) 1 drop EYE-BOTH BID [facility] Last Admin: 03/28/23 08:59 Dose: 1 drop Documented By: TAINA Furosemide (Furosemide 40 Mg Tablet) 40 mg PO DAILY [facility]; Protocol Last Admin: 03/28/23 08:55 Dose: 40 mg Documented By: TAINA Glucose (Glucose Gel 15 Gm Gel..Gram.) 15 gm PO Q15M PRN; Protocol PRN Reason: per Hypoglycemia Standing Ord. Heparin Sodium (Porcine) (Heparin Sodium,Porcine 5,000 Unit/Ml Vial) 5,000 unit SUBCUT Q8H [facility] Last Admin: 03/28/23 05:31 Dose: Not Given Documented By: JOCELIN Non-Admin Reason: Patient Refused Hydralazine HCl (Hydralazine Hcl 25 Mg Tablet) 25 mg PO TID [facility]; Protocol Last Admin: 03/28/23 08:55 Dose: 25 mg Documented By: TAINA Dextrose (D10) 250 mls @ 750 mls/hr IV Q15M PRN; Protocol PRN Reason: per Hypoglycemia Standing Ord. Insulin Human Lispro (Insulin Lispro 100 Unit/Ml 3 Ml Vial) 0 unit SUBCUT QIDACHS [facility]; Protocol Last Admin: 03/28/23 08:19 Dose: Not Given Documented By: TAINA Non-Admin Reason: No Insulin Coverage Isosorbide Mononitrate (Isosorbide Mononitrate 60 Mg Tab.Er.24h) 60 mg PO DAILY [facility]; Protocol Last Admin: 03/28/23 08:55 Dose: 60 mg Documented By: TAINA Latanoprost (Latanoprost 0.005 % Ophth Jaymie 2.5 Ml Drops) 1 drop EYE-BOTH BEDTIME [facility] Last Admin: 03/27/23 21:09 Dose: 1 drop Documented By: JOCELIN Pharmacy Consult (Consult Rx Perform Med Rec) 1 each MISCELLANE ONCE PRN PRN Reason: Consult order Sodium Chloride (0.9 % Sodium Chloride Flush 3 Ml Syringe) 3 ml IVFLUSH QSHIFT [facility] Last Admin: 03/28/23 08:56 Dose: 3 ml Documented By: TAINA Tamsulosin HCl (Tamsulosin Hcl 0.4 Mg Capsule) 0.4 mg PO BEDTIME [facility] Last Admin: 03/27/23 21:03 Dose: 0.4 mg Documented By: JOCELIN Labs 03/25/23 06:59 03/28/23 06:36 Labs: Laboratory Results - last 24 hr 03/25/23 03/27/23 03/27/23 12:57 11:37 15:25 Anion Gap Estim Creat Clear Calc Estimated GFR POC Glucose 214 H 135 H Random Glucose Calcium Magnesium IgG Total 1192 IgA Total 275 IgM 82 ROSMERY Interpretation SEE NOTE 03/27/23 03/28/23 03/28/23 20:11 06:36 07:57 Anion Gap 16 Estim Creat Clear Calc 18.6 Estimated GFR 16 POC Glucose 214 H 127 H Random Glucose 126 H Calcium 8.6 Magnesium 1.8 IgG Total IgA Total IgM ROSMERY Interpretation Assessment and Plan (1) Urinary retention: Status: Acute Plan 62M PMH cardiomyopathy (EF15%, grade III diastolic dysfunction) recently diagnosed at [facility] [place] january 2023 during hospitalization for strep pneumonia with bacteremia, DM, CKD4 with proteinuria, HTN, BPH with urinary retention, presented with lower extremity edema. Anasarca due to acute on chronic HFpEF 40 mg Lasix daily difficult to obtain accurate Is&Os due to urinary retention, overall negative 7L fluid balance nephrology following GERSON on CKD4 cardiorenal no obstruction on renal US but urinary retention contributing factor, patient declining catheter nephro following concern for amyloidosis causing renal failure and cardiomyopathy - will need outpatient kidney bx, cardiac MR, ischemic work up. immunofixation pending? Cardiomyopathy EF 15%, grade III diastolic dysfunction; repeat echo done and EF improved to 55% with WMA further work up to rule out amyloidosis o/p continue lasix as above toprol xl changed to coreg per neprho rec hyperkalemia lokelma follow bmp Hypomagnesemia Replace and follow urinary retention continues to decline murillo/straight cath despite multiple attempts at education regarding importance flomax Chronic normocytic anemia likely anemia of chronic dz in setting of CKD no evidence of blood loss s/p transfused 1u RBC H/H improved post transfusion HTN continue hydralazine, imdur, coreg DM insulin sliding scale dvt prophylaxis - hep sq full code attending - dr. Onofre requires ongoing inpatient stay patient for significant edema requiring diuresis requiring close monitoring daily labs due to concomitant GERSON on CK4 Time Spent With Patient Time: Total time managing care of this patient today ____ minutes. Quality Stroke Does the patient have a stroke diagnosis?: No VTE Prior VTE?: No VTE Risk Level:: Medical - moderate - high VTE Device Contraindication: Treatment Not Indicated VTE Drug Contraindication: N/A - Med Ordered
[2023-03-28 12:02] LABS: Glucose, Whole Blood 221 mg/dL (60-115)
[2023-03-28] MEDS: Insulin Lispro 100 UNIT/ML 3 ML VIAL SUBCUT ×2 (12:37→20:04)
--- NOTE | 2023-03-28 13:48 | PM.PNNEP ---
Subjective Subjective Date of Service: 03/28/23 Interval history: seen and examined this morning follow up for renal failure leg edema improving no respiratory symptoms no overnight events Physical Exam Vital Signs: Vital Signs: Last Vital Signs Temp 97.5 F 03/28/23 11:24 Pulse 83 03/28/23 11:24 Resp 20 03/28/23 11:24 BP 119/62 03/28/23 11:24 Pulse Ox 93 03/28/23 11:24 O2 Del Method Room Air 03/28/23 11:24 BMI result Body Mass Index 23.9 Const: General: comfortable and no acute distress Orientation/consciousness: patient oriented x3 Eyes: EOM: EOMs intact bilaterally Neck: Neck: Yes supple Resp: Auscultation: diminished lung sounds Cardio: Rate: regular rate GI: Palpation (GI): Soft to palpation Skin: General skin exam: no rashes or lesions noted Neuro: General: patient oriented x3 and moves all extremities Extrem: General: Yes edema Objective Data Labs 03/25/23 06:59 03/28/23 06:36 Labs: Laboratory Results - last 24 hr 03/25/23 03/27/23 03/27/23 12:57 15:25 20:11 Sodium Potassium Chloride Carbon Dioxide Anion Gap BUN Creatinine Estim Creat Clear Calc Estimated GFR POC Glucose 135 H 214 H Random Glucose Calcium Magnesium IgG Total 1192 IgA Total 275 IgM 82 ROSMERY Interpretation SEE NOTE 03/28/23 03/28/23 03/28/23 06:36 07:57 11:27 Sodium 138 Potassium 5.3 H Chloride 99 Carbon Dioxide 28 Anion Gap 16 BUN 77 H Creatinine 3.83 H Estim Creat Clear Calc 18.6 Estimated GFR 16 POC Glucose 127 H 221 H Random Glucose 126 H Calcium 8.6 Magnesium 1.8 IgG Total IgA Total IgM ROSMERY Interpretation Procedures Date of Service Date of Service: 03/28/23 Assessment & Plan Assessment and plan (1) Acute kidney injury superimposed on chronic kidney disease: Status: Acute Assessment and Plan: 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 PO Lasix 40 mg q.d. and reassess No ACEI/ARB/Entresto for now; On Carvedilol/ hydralazine/Imdur Has proteinuria- ? Has infiltrative cardiomyopathy; cardiac amyloid? Immunofixation pending Will need renal biopsy later; will follow up as OP if discharged C/W rest of current mgt Time Spent With Patient Time: Total time managing care of this patient today ____ minutes. Progress Note: Quality Stroke Does the patient have a stroke diagnosis?: No
--- NOTE | 2023-03-28 15:25 | MHC.CM.PN ---
Medical indicates via [facility] that Pt may be D/C'd tomorrow. Per [employer], Pt already accepted back by previous [facility] ([facility]). This RNCM notified [facility] that Pt may be D/C'd 03/29 and to please stay tuned. CM to follow.
[2023-03-28 16:05] LABS: Glucose, Whole Blood 120 mg/dL (60-115)
[2023-03-28 19:58] LABS: Glucose, Whole Blood 199 mg/dL (60-115)
[2023-03-28] MEDS: Tamsulosin HCL 0.4 MG CAPSULE PO (20:05)
[2023-03-28] MEDS: Atorvastatin Calcium 40 MG TABLET PO (20:05)
[2023-03-28] MEDS: Latanoprost 0.005 % Ophth Sol 2.5 ML DROPS 1 DROP EYE-BOTH (20:05)
[2023-03-29] VITALS: BP 143/82; PULSE 81; RESP 20; TEMP 36.1; O2SAT 94
[2023-03-29 02:58] VITALS: BP 126/70; PULSE 82; RESP 20; TEMP 36.5; O2SAT 96
--- NOTE | 2023-03-29 05:41 | PC.NURSE ---
patient bladder scan by ANALYTICAL LAB ANALYST approx midnight, PVR [id number]
[2023-03-29 06:55] LABS: Anion Gap 13 (12-20); Blood Urea Nitrogen 78 mg/dL (9-16); Calcium 8.9 mg/dL (8.4-10.2); Carbon Dioxide 30 mmol/L (22-29); Chloride 100 mmol/L (96-108); Creatinine Clr Calc Pharmacy 19.6; Estimated Glomerular Filt Rate 17; Glucose Random 171 mg/dL (60-115); Potassium 5.4 mmol/L (3.3-5.1); Sodium 138 mmol/L (135-145)
[2023-03-29 07:05] VITALS: BP 129/74; PULSE 88; RESP 20; TEMP 36.4; O2SAT 94
[2023-03-29] MEDS: carvediloL 6.25 MG TABLET PO (08:22)
[2023-03-29] MEDS: Furosemide 40 MG TABLET PO (08:22)
[2023-03-29] MEDS: Insulin Lispro 100 UNIT/ML 3 ML VIAL SUBCUT ×2 (08:22→12:35)
[2023-03-29] MEDS: hydrALAZINE HCl 25 MG TABLET PO (08:23)
[2023-03-29] MEDS: Sodium Zirconium Cyclosilicate 10 GM POWD.PACK PO (08:23)
[2023-03-29] MEDS: 0.9 % Sodium Chloride Flush 3 ML SYRINGE IVFLUSH (08:23)
[2023-03-29] MEDS: Aspirin Enteric Coated 81 MG TABLET.DR PO (08:23)
[2023-03-29] MEDS: Isosorbide Mononitrate 60 MG TAB.ER.24H PO (08:23)
[2023-03-29] MEDS: Dorzolamide/Timolo 2.23%/0.68% 10 ML DRBTL 1 DROP EYE-BOTH (08:23)
[2023-03-29 09:00] LABS: Glucose, Whole Blood 172 mg/dL (60-115)
[2023-03-29 11:13] VITALS: BP 121/68; PULSE 85; RESP 20; TEMP 36.4; O2SAT 92
[2023-03-29 12:01] LABS: Glucose, Whole Blood 193 mg/dL (60-115)
[2023-03-29 12:18] LABS: Potassium 5.1 mmol/L (3.3-5.1)
--- NOTE | 2023-03-29 17:35 | PC.NURSE ---
Assumed care of patient at this time.
[2023-03-30 18:03] LABS: IgA 287 mg/dL (70-320); IgG 1285 mg/dL (600-1540); IgM 80 mg/dL (50-300)
== END 2023-03-29 17:43 | disposition home health service (06) | DRG 194 ==
LOC: HO.ED 19:42 → HO.EDOVER 21:59 → HO.IMC 22:00
PROVIDERS: Internal Medicine Cardiovascular Disease; Internal Medicine Nephrology; Physician Assistant; Physician Assistant Medical; Admitting Provider Internal Medicine; Emergency Provider Internal Medicine; PCP Internal Medicine; Visit Provider Nurse Practitioner Acute Care
DX: I13.0 Hypertensive heart and chronic kidney disease with heart failure and stage 1 through stage 4 chronic kidney disease, or unspecified chronic kidney disease (principal); N17.9 Acute kidney failure, unspecified; I27.20 Pulmonary hypertension, unspecified; I42.8 Other cardiomyopathies; D63.1 Anemia in chronic kidney disease; N13.8 Other obstructive and reflux uropathy; E11.22 Type 2 diabetes mellitus with diabetic chronic kidney disease; D64.9 Anemia, unspecified; N40.1 Benign prostatic hyperplasia with lower urinary tract symptoms; R33.8 Other retention of urine; E87.5 Hyperkalemia; I50.23 Acute on chronic systolic (congestive) heart failure; E83.42 Hypomagnesemia; N18.4 Chronic kidney disease, stage 4 (severe); Z79.82 Long term (current) use of aspirin; Z79.899 Other long term (current) drug therapy
CPT/HCPCS: 36415; 71046; 76775; 80048; 80053; 82784; 82947; 83735; 83880; 84132; 85025; 85027; 86334; 86335; 86850; 86900; 86901; 86923; 93005; 93306; 99285; C1758; J1643; J1940; J3475; P9016; Q9957

== ENCOUNTER → 2023-04-06 15:40 | Outpatient (BNVA) | payer MEDICAID, SELFPAY | PROVIDERS: PCP Internal Medicine; Visit Provider Nurse Practitioner Family | DX: I42.9 Cardiomyopathy, unspecified (principal); I13.0 Hypertensive heart and chronic kidney disease with heart failure and stage 1 through stage 4 chronic kidney disease, or unspecified chronic kidney disease; N18.30 Chronic kidney disease, stage 3 unspecified; I50.9 Heart failure, unspecified; R93.1 Abnormal findings on diagnostic imaging of heart and coronary circulation | CPT/HCPCS: 99212 ==

== ENCOUNTER → 2023-04-24 09:43 | Outpatient (REF) | payer MEDICAID, SELFPAY ==
--- NOTE | ~2023-04-24 | NM_ITS ---
Lexiscan Myocardial perfusion study Indication: Cardiomegaly, assess for coronary disease and ischemia Technique: The patient was brought in for a Lexiscan perfusion study on 04/24/2023 and was injected 0.4 mg of Lexiscan intravenously. Within a minute of this injection 25 mCi of sestamibi was given intravenously. Images were obtained using the SPECT gamma camera interlaced with the gating device. Images were obtained in supine position. Resting perfusion study was performed on 04/29/2023. Patient was administered 25 mCi of sestamibi intravenously at rest. Images were then obtained in supine position. Images were processed with the software and compared side to side in short axis, horizontal long axis and vertical long axis views. Total DLP 80mGy-cm. Findings: Raw acquisition reviewed. The stress perfusion study showed diminished tracer uptake along the inferior wall. No significant change with CT attenuation correction. The gated study shows diminished LV systolic function with calculated LVEF of 32 %. LV cavity is dilated in size. The gated study shows globally reduced wall thickening and contractility and also with regionality to the inferior wall. Resting study shows diminished tracer uptake along the inferior wall. With CT attenuation correction, there is possibly some improvement. Gating at rest reveals globally reduced wall motion with ejection fraction at 41%. The findings are consistent with fixed inferior wall perfusion defect. No reversible defects. NM/NM cardiolite stress test Impression: 1. Myocardial perfusion imaging study shows fixed inferior wall defect suggesting prior infarct. 2. Gated LVEF is 32% during stress and 41% during rest. 3. Transient ischemic dilatation not clearly identified but there is chamber dilatation. EKG component of the test reported separately.
--- NOTE | 2023-04-24 09:49 | CA_ITS ---
Acquisition Time: 2023-04-24 10:23:06 Total Exercise Time: 00:02:00 Test Indications: CARDIOMYOPATHY Medications: ALBUTEROL ASA CAVEDILOL ISOSORBIDE Protocol: LEXISCAN Max HR: 082 BPM 52% of Pred: 157 BPM Max BP: 120/080 mmHG Max Work Load: 1.0 METS Pharmacological stress test with Lexiscan injection while sitting and kicking his legs, without anginal symptoms, without arrhythmias, with normotensive response to injection, without EKG changes. Nuclear images pending. Test reviewed with Dr. Tang. Referred By: Lashonda Pearson Overread By: LASHONDA PEARSON
== END ==
LOC: HO.CARD 09:43
PROVIDERS: PCP Internal Medicine; Visit Provider Nurse Practitioner Family
DX: I42.9 Cardiomyopathy, unspecified (principal); R93.1 Abnormal findings on diagnostic imaging of heart and coronary circulation
CPT/HCPCS: 78452; 93017; A9500; J0280; J2785

== ENCOUNTER → 2023-05-21 15:33 | Outpatient (BNVA) | payer MEDICAID, SELFPAY | PROVIDERS: PCP Internal Medicine; Referring Provider Internal Medicine; Visit Provider Nurse Practitioner Family | DX: I42.9 Cardiomyopathy, unspecified (principal); I13.0 Hypertensive heart and chronic kidney disease with heart failure and stage 1 through stage 4 chronic kidney disease, or unspecified chronic kidney disease; I50.9 Heart failure, unspecified; N18.30 Chronic kidney disease, stage 3 unspecified; R93.1 Abnormal findings on diagnostic imaging of heart and coronary circulation; Z79.899 Other long term (current) drug therapy | CPT/HCPCS: 99212 ==

== ENCOUNTER 2023-06-09 11:07 | Outpatient (REF) | payer MEDICAID, SELFPAY ==
[2023-06-09 13:07] LABS: MANUAL DIFF FLAG NO
[2023-06-09 13:20] LABS: Basophils Absolute Auto 0.1 X10*3/uL (0.0-0.2); Eosinophils Absolute Auto 0.3 X10*3/uL (0.0-0.4); Eosinophils Percent Auto 2.3 % (0-4); Hematocrit 30.3 % (42.0-52.0); Hemoglobin 9.5 g/dl (14.0-18.0); Imm Gran Abs Auto 0.04 X10*3/uL (0.00-0.03); Imm Gran Pct Auto 0.3 % (0.0-0.4); Lymphocytes Absolute Auto 0.9 X10*3/uL (1.2-4.9); Lymphocytes Percent Auto 7.2 % (20-40); Mean Corpuscular HGB Conc 31.4 g/dl (31.0-36.0); Mean Corpuscular Hemoglobin 28.4 pg (27.0-33.0); Mean Corpuscular Volume 90.7 fL (80.0-98.0); Mean Platelet Volume 11.7 fL (9.4-12.4); Monocytes Percent Auto 7.8 % (2-11); Neutrophils Absolute Auto 9.9 x10*3/uL (2.0-8.3); Neutrophils Percent Auto 81.4 % (45-73); Platelet Count 362 X10*3/uL (160-400); Red Blood Count 3.34 X10*6/uL (4.60-5.80); Red Cell Distribution Width 13.1 % (11.0-16.0); White Blood Count 12.1 X10*3/uL (4.8-10.8)
[2023-06-09 13:35] LABS: Estimated Average Glucose 206 mg/dL; Hemoglobin A1c % 8.8 %
[2023-06-09 14:03] LABS: Alanine Aminotransferase 195 U/L (0-40); Albumin Level 3.7 g/dL (3.5-5.0); Alkaline Phosphatase 456 U/L (39-117); Anion Gap 16 (12-20); Aspartate Amino Transferase 110 U/L (5-37); Bilirubin Total 0.8 mg/dL (0.0-1.0); Blood Urea Nitrogen 67 mg/dL (9-16); Calcium 9.5 mg/dL (8.4-10.2); Carbon Dioxide 17 mmol/L (22-29); Chloride 106 mmol/L (96-108); Estimated Glomerular Filt Rate 18; Glucose Fasting 240 mg/dL (60-99); Potassium 4.1 mmol/L (3.3-5.1); Sodium 135 mmol/L (135-145); Total Protein 7.3 g/dL (6.5-8.0)
== END 2023-06-09 11:08 | disposition home or self-care (01) ==
LOC: HO.HMGCLDS 11:07
PROVIDERS: Absent Provider Internal Medicine Nephrology; PCP Internal Medicine; Visit Provider Internal Medicine
DX: N18.4 Chronic kidney disease, stage 4 (severe) (principal)
CPT/HCPCS: 36415; 80053; 83036; 85025

== ENCOUNTER 2023-08-31 14:44 | Outpatient (AMB) | payer MEDICAID, SELFPAY ==
[2023-08-31 14:53] VITALS: BP 114/80; PULSE 67; BMI 18.5
--- NOTE | 2023-08-31 14:53 | A.OFFVIS_ITS ---
Intake Vital Signs 08/31/23 14:53 Height 5 ft 7 in Weight 118 lb BMI 18.5 BP 114/80 Blood Pressure Location Lt brachial Position Sitting Pulse 67 Pulse Source Pulse Oximeter Intake Visit Reasons: follow up 3 months Intake Note: f/u 3 month Encyclopedia Research Worker Required: No Allergies No Known Allergies Allergy (Verified 08/31/23 14:59) Medication List - Last Reconciled 08/31/23 by Avelnio Chong MD albuterol sulfate 90 mcg/actuation (Ventolin HFA) 1 - 2 puffs inhalation Q4-6H PRN aspirin 81 mg PO DAILY atorvastatin 40 mg PO BEDTIME brimonidine 0.025% 1 drp ophthalmic-Right Q8H PRN carvedilol 6.25 mg PO BID 90 days dorzolamide-timolol 22.3-6.8 mg/mL 1 drp ophthalmic (eye) BID furosemide 40 mg See Protocol PO DAILY glyburide 2.5 mg PO QAM hydralazine 25 mg PO TID 90 days isosorbide mononitrate ER 60 mg (2 x 30 mg) PO DAILY latanoprost 0.005% 1 drp ophthalmic (eye) BEDTIME tamsulosin 0.4 mg PO BEDTIME HPI HPI Comments History of Present Illness Details 63-year-old gentleman who is here for fo llow-up. He was seen in the hospital when he presented with congestive heart failure and was diuresed. Previously had severe LV dysfunction but echocardiography performed February 2023 has shown ejection fraction 50 55% with apical inferior and mid inferoseptal segments hypokinesis. There was also basal inferior, mid inferior, basal inferoseptal and basal anteroseptal akinesis. There was a trivial pericardial effusion. He has advanced CKD, anemia and failure to thrive. He is currently in a nursing facility. He is saying is doing some rehab and can walk a hallway but legs are quite weak and he cannot walk a lot. Blood pressure control is good. He is not volume overloaded. He is saying that he has been seeing Nephrology in overall kidney function has been stable. There was some question about amyloidosis in the past and he was being planned to undergo cardiac MRI but it appears his kidney function was to abnormal and he has not undergone MRI. [facility] Medical History BPH (benign prostatic hyperplasia) Cardiomyopathy CKD (chronic kidney disease), stage III Diabetes mellitus Hypertension Surgical History No pertinent past surgical history Social History Household Members: Family Housing: House Do you presently have visiting nurse or other home services: Yes Alcohol intake: never Patient Tobacco Use Status: Never used Tobacco service: No Current occupational status: unemployed Review of Systems ENT Reports dizziness Card Denies chest pain, Denies chest pain at rest, Denies chest pain with activity, Denies rapid heart rate, Denies pedal edema, Denies edema, Denies leg edema, Den ies lightheadedness, Denies palpitations, Denies dyspnea, Denies dyspnea on exertion and Denies orthopnea Resp Denies cough, Denies dyspnea and Denies dyspnea on exertion GI Denies hematochezia and Denies change in stool character Musc Denies abnormal gait, Reports limited range of motion, Reports muscle cramps, Denies muscle weakness, Denies numbness, Denies radiating pain into limb, Denies stiffness and Denies tingling Neuro Denies abnormal gait, Reports dizziness, Denies numbness and Denies tingling Endo Denies palpitations Physical Exam Vital Signs: Last Vital Signs Pulse 67 08/31/23 14:53 BP 114/80 08/31/23 14:53 BMI result Body Mass Index 18.5 GENERAL APPEARANCE: Ill-appearing. Pale. NECK: no carotid bruit, no jugular venous distention. SKIN: no suspicious lesions, warm and dry. Fungal nail infection. HEART: no murmurs, regular rate and rhythm. LUNGS: clear to auscultation bilaterally. ABDOMEN: soft, nontender. EXTREMITIES: no edema. PERIPHERAL PULSES: equal. NEUROLOGIC: No gross deficits, AAO X 3 Assessment & Plan Assessment & Plan (1) Cardiomyopathy: Comment: ef 15%, grade 3 diastolic (january 2023, [facility]) Code(s): I42.9 - Cardiomyopathy, unspecified (2) Hypertension: Code(s): I10 - Essential (primary) hypertension (3) CKD (chronic kidney disease), stage III: Code(s): N18.30 - Chronic kidney disease, stage 3 unspecified Plan 63-year-old gentleman who is presenting for follow-up. He has advanced CKD, diastolic heart failure and hypertension. He previously had echocardiography showing wall motion abnormalities with nuclear perfusion imaging showing inferior perfusion defect. He is denying any symptoms. He is not physically active and looks quite frail and deconditioned. He is pale and quite ill appearing. He is currently in a rehab facility. Not volume overloaded by examination. I think he should continue same medications for now. He will see us back in 6 months with Lashonda. Thank you for allowing me to participate in the care of your patient. Please feel free to contact me if you have any questions. Coding Level of Care Code Est Pt Level 3 (84355) Diagnoses Cardiomyopathy I42.9 Hypertension I10 CKD (chronic kidney disease), stage III N18.30
== END 2023-08-31 15:24 | disposition home or self-care (01) ==
PROVIDERS: PCP Internal Medicine; Visit Provider Internal Medicine Cardiovascular Disease
DX: I42.9 Cardiomyopathy, unspecified (principal); I10 Essential (primary) hypertension; N18.30 Chronic kidney disease, stage 3 unspecified
CPT/HCPCS: 99213

== ENCOUNTER → 2023-08-31 14:44 | Outpatient (BNVA) | payer MEDICAID, SELFPAY | PROVIDERS: PCP Internal Medicine; Visit Provider Internal Medicine Cardiovascular Disease | DX: I42.9 Cardiomyopathy, unspecified (principal); I13.0 Hypertensive heart and chronic kidney disease with heart failure and stage 1 through stage 4 chronic kidney disease, or unspecified chronic kidney disease; I50.9 Heart failure, unspecified; E11.22 Type 2 diabetes mellitus with diabetic chronic kidney disease; N18.30 Chronic kidney disease, stage 3 unspecified | CPT/HCPCS: 99212 ==